=== PATIENT | female | born 1990 | race Caucasian/White ===

== ENCOUNTER → 2024-03-25 11:35 | Outpatient (REF) | payer OTHER, SELFPAY | LOC: WDC 11:35 | PROVIDERS: ATTENDING PHYSICIAN Nurse Practitioner Family; FAMILY PHYSICIAN Physician Assistant Medical | DX: Z12.31 Encounter for screening mammogram for malignant neoplasm of breast (principal); Z80.3 Family history of malignant neoplasm of breast; N64.4 Mastodynia | CPT/HCPCS: 77063; 77067 ==

== ENCOUNTER → 2024-04-11 13:49 | Outpatient (REF) | payer OTHER, SELFPAY | LOC: WDC 13:49 | PROVIDERS: ATTENDING PHYSICIAN Nurse Practitioner Family; FAMILY PHYSICIAN Family Medicine | DX: N64.4 Mastodynia (principal) | CPT/HCPCS: 76642 ==

== ENCOUNTER → 2024-10-09 07:28 | Outpatient (REF) | payer OTHER, SELFPAY | LOC: PNTC 07:28 | PROVIDERS: ATTENDING PHYSICIAN Obstetrics & Gynecology | DX: O09.519 Supervision of elderly primigravida, unspecified trimester (principal); O99.210 Obesity complicating pregnancy, unspecified trimester | CPT/HCPCS: 76805 ==

== ENCOUNTER 2024-12-25 17:07 | Observation (INO) | payer OTHER, SELFPAY ==
[2024-12-25 17:12] VITALS: BMI 35.0
[2024-12-25 17:15] VITALS: BP 119/64
[2024-12-25 17:40] LABS: % Basophils 0.5 % (0-2); % Eosinophils 2.1 % (0-6); % Immature Granulocytes 1.3 % (0-0.5); % Lymphocytes 13.8 % (20.5-51.1); % Monocytes 7.3 % (1.7-9.3); Absolute Basophils 0.1 10^3/uL (0-0.2); Absolute Eosinophils 0.2 10^3/uL (0-0.7); Absolute Immature Granulocytes 0.1 10^3/uL (0-0.05); Absolute Lymphocytes 1.4 10^3/uL (1.2-3.4); Absolute Monocytes 0.7 10^3/uL (0.1-0.6); Absolute Neutrophils 7.5 10^3/uL (1.4-6.5); Hematocrit 29.9 % (37.0-47.0); Hemoglobin 10.6 g/dL (12.0-16.0); Mean Corp Hgb Conc. 35.5 g/dL (33.0-37.0); Mean Corpuscular Hgb 30.5 pg (27.0-31.0); Mean Corpuscular Volume 85.9 fL (81.0-99.0); Mean Platelet Volume 11.6 fL (7.4-10.4); Nucleated Red Blood Cells % 0 %; Platelet Count 155 10^3/uL (130-400); Red Blood Cell Count 3.48 10^6/uL (4.20-5.40); Red Cell Dist. Width 13.3 % (11.5-14.5); White Blood Cell Count 9.9 10^3/uL (4.8-10.8)
[2024-12-25 17:56] LABS: ALT (SGPT) < 10 U/L (0-35); AST (SGOT) 14 U/L (14-36); Albumin 3.3 g/dl (3.5-5.0); Alkaline Phosphatase 73 U/L (38-126); Blood Urea Nitrogen 7 mg/dl (7-17); Calcium 9.2 mg/dl (8.4-10.2); Carbon Dioxide 21 mmol/L (22-30); Chloride 107 mmol/L (98-107); Estimated Creatinine Clearance > 125 ml/min; Glucose 107 mg/dl (70-99); Potassium 3.6 mmol/L (3.5-5.1); Sodium 135 mmol/L (135-145); Total Bilirubin 0.4 mg/dl (0.2-1.3); Total Protein 6.1 g/dl (6.3-8.2); eGFR > 60.00
[2024-12-25 18:07] LABS: Protein/creatinine Ratio 0.7; Urine Protein 13 mg/dl
== END 2024-12-25 18:23 | disposition home or self-care (01) ==
LOC: LDRP 17:07
PROVIDERS: ADMITTING PHYSICIAN Obstetrics & Gynecology; FAMILY PHYSICIAN Family Medicine
DX: O26.892 Other specified pregnancy related conditions, second trimester (principal); R51.9 Headache, unspecified; Z3A.27 27 weeks gestation of pregnancy
CPT/HCPCS: 80053; 82570; 84156; 85025; G0378

== ENCOUNTER 2025-01-12 05:23 | Observation (INO) | payer OTHER, SELFPAY ==
[2025-01-12 06:01] VITALS: BP 116/76; BMI 35.4
== END 2025-01-12 11:05 | disposition short-term general hospital (02) ==
LOC: LDRP 05:23
PROVIDERS: ADMITTING PHYSICIAN Obstetrics & Gynecology
DX: O26.893 Other specified pregnancy related conditions, third trimester (principal); R05.9 Cough, unspecified; Z3A.30 30 weeks gestation of pregnancy

== ENCOUNTER 2025-01-12 16:37 | Inpatient (IN) | payer OTHER, SELFPAY ==
[2025-01-12] VITALS (12 sets, daily range): BP systolic 90–126; BP diastolic 57–90; BMI 36.7
[2025-01-12] MEDS: VENTOLIN NEBULES 2.5 MG INH (06:44)
[2025-01-12] MEDS: DUONEB 3 ML INH ×5 (07:05→23:08)
[2025-01-12] MEDS: DECADRON 10 MG IV (07:05)
--- NOTE | 2025-01-12 11:24 | ED.GENMED ---
History of Present Illness
General
Chief Complaint: Breathing Problem
Source: patient and spouse
Time Seen by Provider: 01/12/25 06:29
History of Present Illness
History of Present Illness:
This is a 34-year-old female who presents with shortness of breath and coughing. The patient states has been ongoing for the last 1 to 2 days. She does admit she has has allergies to nose and congestion. She denies fever or illness. No sick
contacts. Patient states she has been having normal movement. No fevers or hemoptysis. Has had bilateral leg swelling related to her . She is approximately 31 weeks. Patient also admits to a rash that she has been dealing with
Past History
Past History
ED Past Medical History: None
ED Past Surgical History: None
Social History
Tobacco: Non-smoker
Personal:
Living: with family
Employment: Employed
Phy Exam
Physical Exam
Physical Exam:
CONSTITUTIONAL Patient alert and oriented to person, place and time. Well-appearing. Vital signs reviewed.
HEAD atraumatic, normocephalic.
EYES eyelids normal to inspection, Extraocular muscles intact, Conjunctiva normal, Sclera normal.
NECK normal range of motion, Trachea midline, no jugular venous distention.
RESPIRATORY CHEST No respiratory distress noted, Chest expansion equal, moderate to severe wheezing bilaterally.
CARDIOVASCULAR regular and tachycardic, Heart sounds normal.
ABDOMEN gravid uterus noted appropriate for stated gestational age.
BACK normal inspection, no obvious deformities
UPPER EXTREMITY range of motion normal, Motor strength normal, no cyanosis, no edema.
LOWER EXTREMITY range of motion normal, Motor strength normal, no cyanosis, trace bilateral edema.
NEURO Speech normal, No focal motor deficits, Marquita coma scale 15, Memory normal, Cranial Nerves intact to screening exam.
SKIN skin warm, dry, and with papules noted on the legs. She also has confluence raised patches on her abdomen
Sepsis
Sepsis Screening
Sepsis Assessment: Sepsis Ruled Out
Sepsis Screen
Sepsis Screen: Sepsis Ruled Out
Date: 01/12/25
Time: 14:16
Course
Orders/Labs/Results
Orders:
Orders
01/12/25 06:41
Albuterol Nebs [Ventolin Nebules] 2.5 mg .ROUTE .STK-MED ONE
01/12/25 06:43
Albuterol Nebs [Ventolin Nebules] 2.5 mg INH R NOW STA
01/12/25 06:50
Dexamethasone Sod Phosphate [Decadron] 10 mg IV NOW STA
Ipratropium/Albuterol Sulfate [Duoneb] 3 ml INH R NOW STA
Ipratropium/Albuterol Sulfate [Duoneb] 3 ml INH R NOW STA
01/12/25 09:49
Ipratropium/Albuterol Sulfate [Duoneb] 3 ml INH R NOW STA
01/12/25 11:42
0.9% Sodium Chloride 500 ml [Nss] 500 ml IV BOLUS
01/12/25 11:45
Complete Blood Count/With Diff Urgent
Comprehensive Metabolic Panel Urgent
Abnormal Lab Results
01/12/25
11:45
WBC 14.6 H 10^3/uL
(4.8-10.8)
RBC 3.39 L 10^6/uL
(4.20-5.40)
Hgb 10.0 L g/dL
(12.0-16.0)
Hct 29.7 L %
(37.0-47.0)
MPV 12.1 H fL
(7.4-10.4)
Abs Immat Gran (auto) 0.3 H 10^3/uL
(0-0.05)
Absolute Neuts (auto) 13.4 H 10^3/uL
(1.4-6.5)
Absolute Lymphs (auto) 0.6 L 10^3/uL
(1.2-3.4)
Immature Gran % 2.3 H %
(0-0.5)
Neutrophils % 91.9 H %
(42.2-75.2)
Lymphocytes % 3.8 L %
(20.5-51.1)
Monocytes % 0.9 L %
(1.7-9.3)
Potassium 3.3 L mmol/L
(3.5-5.1)
Chloride 114 H mmol/L
(98-107)
Carbon Dioxide 18 L mmol/L
(22-30)
BUN 4 L mg/dl
(7-17)
Creatinine 0.4 L mg/dL
(0.6-1.0)
Glucose 138 H mg/dl
(70-99)
Calcium 8.0 L mg/dl
(8.4-10.2)
Total Protein 5.6 L g/dl
(6.3-8.2)
Albumin 3.0 L g/dl
(3.5-5.0)
01/12/25 11:45
01/12/25 11:45
Vital Signs
Initial and Last Documented VS:
Initial Vital Signs
Temp Pulse Resp BP Pulse Ox
97.8 F 96 22 90/66 98
01/12/25 06:15 01/12/25 06:15 01/12/25 06:15 01/12/25 06:15 01/12/25 06:15
Last Documented Vital Signs
Temp Pulse Resp BP Pulse Ox
97.8 F 99 23 111/57 96
01/12/25 06:15 01/12/25 12:45 01/12/25 12:15 01/12/25 13:00 01/12/25 13:45
MDM/Problems Addressed
Differential Diagnosis Includes:
Pneumonia, PE, bronchitis, reactive airway disease, PUPPP
MDM/Problems Addressed:
Reactive airway disease, Pruritic Urticarial Papules and Plaques of (PUPPP)
*Pulse Oximetry
Patient hypoxic: no
*Squirrel Man Interpretation
Rate: tachycardiac
Interpretation: abnormal
Rhythm: sinus
*Critical Care Note
Total Time (30-74mins, 75-104mins- exclusive of procedures): Not Applicable
Data Reviewed
Source: patient and spouse
Prescriptions/Medications Considered But Not Given:
Consider antibiotics but suspect no focal infiltrates
Further Testing Considered But Not Given:
Consider chest x-ray and chest CT. However patient is hesitant to expose fetus to radiation. At this point with the wheezing I think it is reasonable
Patient Management
Discussion with other providers: Hospitalist and Slitter Helper (OB Dr. Tripp)
Escalation/DeEscalation of care consider admission/obs:
34-year-old female who presents with difficulty breathing and cough. Given several bronchodilator dosages and steroids but continues to wheeze. Attempted to ambulate her but she felt dizzy and short of breath. Do not have significant suspicion
for pulmonary embolism as she is wheezing bilaterally but will need to be monitored for improvement. She did report mild improvement with breathing treatments making the risk of PE or other ominous diagnosis less likely. If symptoms do not improve
as expected, may need advanced imaging
ED Attending Note
-
Portions of this chart may have been created with voice recognition software.� Occasional wrong word or��sound alike� substitutions may have occurred due to the inherent limitations of voice recognition software.
Discharge Plan
Departure
Patient Disposition: Admit
Date of Disposition: 01/12/25
Time of Disposition: 13:13
Admit to: Med/Surg
Presentation/result/management discussed w/ accepting MD/DO: Hospitalist
Discharge Problem:
RAD (reactive airway disease) with wheezing, Pruritic urticarial papules and plaques of (puppp)
Prescriptions:
No Action
cetirizine [Zyrtec] 10 mg Tablet
10 mg PO HS
ferrous sulfate 325 mg (65 mg iron) Tablet
325 mg PO DAILY
PNV cmb#95-ferrous fumarate-FA [] 28 mg iron- 800 mcg Tablet
1 tab PO DAILY
Referrals:
UNKNOWN - PT DOES,NOT KNOW [Family Provider] -
Interventions
Interventions:
*Risk Screen - Suicide Last Done: 01/12/25 06:15
*General Assessment Last Done: 01/12/25 08:30
*Neglect/Abuse Screening Last Done: 01/12/25 06:15
*ED- Fall Risk Assessment Last Done: 01/12/25 09:29
*ED COVID-19 Vaccine History Last Done: 01/12/25 08:30
ED- Cardiac Assessment Last Done: 01/12/25 06:35
ED- Pulmonary Assessment Last Done: 01/12/25 06:35
Discharge Date and Time
Print Language: MALAWIAN
[2025-01-12] MEDS: NSS 500 IV (11:49)
[2025-01-12 12:18] LABS: % Basophils 0.3 % (0-2); % Eosinophils 0.8 % (0-6); % Immature Granulocytes 2.3 % (0-0.5); % Lymphocytes 3.8 % (20.5-51.1); % Monocytes 0.9 % (1.7-9.3); % Neutrophils 91.9 % (42.2-75.2); Absolute Basophils 0.1 10^3/uL (0-0.2); Absolute Eosinophils 0.1 10^3/uL (0-0.7); Absolute Immature Granulocytes 0.3 10^3/uL (0-0.05); Absolute Lymphocytes 0.6 10^3/uL (1.2-3.4); Absolute Monocytes 0.1 10^3/uL (0.1-0.6); Absolute Neutrophils 13.4 10^3/uL (1.4-6.5); Hematocrit 29.7 % (37.0-47.0); Mean Corp Hgb Conc. 33.7 g/dL (33.0-37.0); Mean Corpuscular Hgb 29.5 pg (27.0-31.0); Mean Corpuscular Volume 87.6 fL (81.0-99.0); Mean Platelet Volume 12.1 fL (7.4-10.4); Nucleated Red Blood Cells % 0 %; Platelet Count 147 10^3/uL (130-400); Red Blood Cell Count 3.39 10^6/uL (4.20-5.40); Red Cell Dist. Width 14.4 % (11.5-14.5); White Blood Cell Count 14.6 10^3/uL (4.8-10.8)
[2025-01-12 12:38] LABS: Alkaline Phosphatase 99 U/L (38-126); Blood Urea Nitrogen 4 mg/dl (7-17); Carbon Dioxide 18 mmol/L (22-30); Chloride 114 mmol/L (98-107); Estimated Creatinine Clearance > 125 ml/min; Glucose 138 mg/dl (70-99); Potassium 3.3 mmol/L (3.5-5.1); Sodium 138 mmol/L (135-145); eGFR > 60.00
[2025-01-12 12:39] LABS: ALT (SGPT) 12 U/L (0-35); AST (SGOT) 16 U/L (14-36); Total Bilirubin 0.2 mg/dl (0.2-1.3); Total Protein 5.6 g/dl (6.3-8.2)
--- NOTE | 2025-01-12 15:02 | HPS.HSE ---
Addendum entered and electronically signed by Chidi Cates MD 01/13/25 16:53:
34 female history of seasonal allergies who presented with wheezing shortness of breath and pruritic rash on abdomen and lower extremities. Should be noted she is 31 weeks and OB has recommended medicine to admit and they will follow-up on
L&D.
Provided nebulizer treatments discussed with OB they are okay with starting systemic oral steroids.
Check a 2D echocardiogram and BNP to rule out related cardiomyopathy
No sore throat congestions fever to suspect viral syndrome
Pulmonary consult
Original Note:
Family Physician
-
Family Physician: NOT KNOW UNKNOWN - PT DOES
Chief Complaint
-
Shortness of breath and generalized itching
History of Present Illness
Patient is a 34-year-old female, with past medical history of seasonal allergies and has history of 2 in the past. She was in her usual state of health a week ago when she gradually started to feel itchy all over her body including arms
legs, abdomen, dorsum of hands and feet. She tried to use moisturization, zulema butter and over the counter max strength cortisone creams to help with the itching but it persisted. She denies any itching on palms and soles. She said nothing helped
and she was miserable with it. 2 days ago she started to cough, she was dry without any sputum, overnight it became worse and worse and she could now hear wheezing in her chest and so she decided to come to the ER.
She is currently 31 weeks , follows up with her hr payroll coordinator, felt normal movements
This is her third , the first time she ever had the symptoms
She regularly takes Zyrtec for her seasonal allergies. She denies any new medications, perfume, food allergies, hygiene products, sick contacts, or any recent travel.
She denies any fever or chills.
In her medication list, she takes multivitamin and iron supplements.
Medical History
Past Medical History
Past Medical History: Reports None and Other (On disease that her case)
Past Surgical History: Reports (2)
Social History
Tobacco: Non-smoker
Alcohol: None
Drug: None
Personal:
Living: With Family
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
Family History
Family History: Not pertinent
Allergies / Home Medications
Allergies reflects when Allergies were last updated in [facility].
Home Medications with original date entered in [facility]
Allergy/Medication List:
Allergies
Allergy/AdvReac Type Severity Reaction Status Date / Time
No Known Allergies Allergy Verified 01/12/25 06:18
Home Medications
cetirizine 10 mg tablet (Zyrtec) 10 mg PO HS 01/12/25
ferrous sulfate 325 mg (65 mg iron) tablet 325 mg PO DAILY 01/12/25
vit no.95-ferrous fumarate 28 mg-folic acid 800 mcg tablet () 1 tab PO DAILY 01/12/25
Review of Systems
-
A 12 point ROS was completed and negative except as noted: Yes
Physical Exam
Vital Signs
Vital Signs
Temp Pulse Resp BP Pulse Ox
97.8 F 102 19 111/57 98
01/12/25 06:15 01/12/25 14:30 01/12/25 14:30 01/12/25 13:00 01/12/25 14:30
Physical Exam
General: Well Developed, Well Nourished and Other (Anxious appearing, audible wheeze, young female with gravid uterus )
HEENT: Anicteric and Moist mucous membranes
Respiratory: Other (Bilateral wheezes and rhonchi)
Cardiac: S1/S2, Regular Rhythm and Tachycardia
GI: Soft, Non Tender and Other (Gravid abdomen appropriate with gestational age)
Musculoskeletal: No Clubbing, No Cyanosis and No Edema
Skin: Warm, Dry and Other (Tiny red bumps all over the arms and legs as well as abdomen. Excoriation trejo, rash coalescing into plaques over abdomen, patient feels itchy)
Neuro: Awake, Oriented and Nonfocal/grossly intact
Psych: Calm
Laboratory Results
-
01/12/25 11:45
01/12/25 11:45
Laboratory Results
Total Bilirubin 0.2 mg/dl (0.2-1.3) 01/12/25 11:45
AST 16 U/L (14-36) 01/12/25 11:45
ALT 12 U/L (0-35) 01/12/25 11:45
Alkaline Phosphatase 99 U/L (38-126) 01/12/25 11:45
Impression/Plan
-
IMPRESSION:
Patient is a 34-year-old female, s/p 2 prior C-sections, history of Carcamo's palsy, varicella presented to ER with shortness of breath and cough. Patient had been feeling itchiness all over the body with tiny bumpy red rash all over the ground
anterior abdomen bilateral legs, arms dorsum of hands and dorsum of feet. The cough started 2 days ago and it progressed to wheezing which prompted the patient to come to the ER. She denied any new foods medication, lotions since, medications.
She only takes iurn-dji-pgaermp iron supplementation. Has had history of seasonal allergies for which she takes daily citrate
Prior
Currently 31 weeks of gestation, normal movements and has had an uneventful .
ASSESSMENT/PLAN:
1. Shortness of breath secondary to likely bronchospasm
No past medical history of asthma/COPD or any other lung issues
No history of food allergy
History of seasonal allergies, uses zytrec daily
Presented with audible wheezing, no oxygen requirement, breathing on room air
Non-smoker
No prior imaging available
Pulmonology consult appreciated-recommended outpatient pulmonary evaluation for PFTs and 6-minute walking test once she delivers baby and is back to baseline
Okay to start IV steroids/IV antihistamine with approval from [facility]
2D Doppler echocardiogram
2.Generalized itching most likely secondary to pruritic urticarial papules and plaques of
Generalized itching, involving tiny red bumps over her arms legs trunk abdomen dorsum of hands and face, sparing palms and soles
AST ALT and ALP within normal limits
Patient already tried emollients and topical steroid [id number]
Start oral steroids
[employer] [facility] [employer] [facility] consult appreciated- okay with starting oral steroids
Repeat BMP
DVT prophylaxis-sequential compression devices
CODE STATUS-full code
[2025-01-12] MEDS: XOPENEX 0.63 MG INHALANT SOLUTION INH (16:25)
--- NOTE | 2025-01-12 16:27 | CON.PUL ---
Consultation
Consultation Request
Date/Time Consultation Requested: 01/12/25
Date/Time Consultation Performed: 01/12/25
Performing Provider: Roxane
Reason for Consultation: SOB/rash
Medical History
-
History of Present Illness:
Patient is a 34-year-old male with who is s/p 2 prior C-sections, Carcamo's palsy, varicella presenting to ER following progressive shortness of breath and coughing. This has been going on for the past 2 days, she has noticed also new pruritic
rash worsening on her abdomen. Her rash is distributed on her posterior trunk, anterior abdomen, bilateral lower extremities. She denies any new foods, medications, lotion or scents that she can think of. She was taking wbxi-vwk-mfydqmg iron
supplementation for iron deficiency anemia. She does have seasonal allergy history and eczema in the past prior to third . She denies any prior known history of lung disease including asthma. She had been and delivered in her
first 2 pregnancies without issues.
She is approximately 31 weeks gestation.
Past Medical History
Past Medical History: Other (see list below)
Social History
Tobacco: Non-smoker
Alcohol: None
Drug: None
Family History
Family History: Reviewed & Not Pertinent
Allergies / Home Medications
Allergies
Allergy/AdvReac Type Severity Reaction Status Date / Time
No Known Allergies Allergy Verified 01/12/25 06:18
Home Medications
�Medication �Instructions �Recorded �Confirmed �Last Taken �Type
cetirizine 10 mg tablet (Zyrtec) 10 mg PO HS 01/12/25 01/12/25 01/11/25 22:00 History
ferrous sulfate 325 mg (65 mg 325 mg PO DAILY 01/12/25 01/12/25 01/11/25 History
iron) tablet
vit no.95-ferrous 1 tab PO DAILY 01/12/25 01/12/25 01/11/25 History
fumarate 28 mg-folic acid 800 mcg
tablet ()
Review of Systems
-
History Source: Patient
All other systems: Negative unless noted
Vitals / Labs / Diagnostic Testing
Vital Signs
Temp Pulse Resp BP Pulse Ox
97.8 F 115 22 111/57 97
01/12/25 06:15 01/12/25 15:30 01/12/25 15:30 01/12/25 13:00 01/12/25 15:30
Lab Data
01/12/25 11:45
Diagnostic Testing:
Physical Exam
-
HEENT: Normocephalic, Anicteric and Moist Mucous Membranes
Cardiovascular: S1/S2 and Regular Rhythm
Respiratory: Clear and Non-Labored Respirations
GI: Soft, Non Tender and Other (abdomen with anterior rash down midline)
Neurology: Awake, Alert, Oriented and No Motor Deficits
Skin: Warm, Dry and Other (rash on posterior trunk/anterior abd/BL LEs)
General: Comfortable and Other (anxious, but appears well)
Assessment
-
Patient is a 34-year-old male with who is s/p 2 prior C-sections, Carcamo's palsy, varicella presenting to [facility] ER following progressive shortness of breath and coughing. This has been going on for the past 2 days, she has noticed also new pruritic
rash worsening on her abdomen. Her rash is distributed on her posterior trunk, anterior abdomen, bilateral lower extremities. She denies any new foods, medications, lotion or scents that she can think of. She was taking aehf-afn-lpxjbvo iron
supplementation for iron deficiency anemia. She does have seasonal allergy history and eczema in the past prior to third . She denies any prior known history of lung disease including asthma. She had been and delivered in her
first 2 pregnancies without issues.
She is approximately 31 weeks gestation. We are consulted for evaluation 01/12/25.
Acute shortness of breath/coughing
Acute diffuse pruritic rash, over anterior abdomen/posterior trunk/bilateral lower extremity
Iron deficiency anemia, recently started on jqcw-igp-ilgouow iron supplements
Current gestational status,
Conditions present prior to admission
Varicella
Carcamo's palsy
Seasonal allergies
Eczema
Plan
No oxygen was needed on admission, currently saturating >90% on RA
She was given a nebulizer treatment which she feels does help with wheezing
She is currently clear on examination
Prior history of lung disease is not noted, she was never diagnosed with asthma
She denies family history of asthma, father had COPD but he was a former smoker
She is a lifelong non-smoker
No prior chest imaging for review
She did have prior history of seasonal allergies and eczema prior to gestation
She was given a dose of IV steroids, CBC was obtained following dosage of steroid therefore no eosinophilia will be evident
Can obtain IgE level
This does appear more atopic in appearance
Would continue IV steroids and IV histamine with approval from [facility]
She denies any new changes in her medication regimen, food intake, lotions or creams
She did start supplemental iron bhlj-fly-mcehkxj recently for underlying ALONA
She has no allergies to food or medicine that she is aware of
Will need outpatient pulmonary evaluation in our office for PFTs and 6MWT
However, she is very far along her at 31 weeks gestation and may have impact on her lung function at this trimester
We will follow
Diagnostic Data
No prior chest imaging.
Reports and relevant images were personally reviewed.
Total time spent on this consultation __58__ minutes which includes review of history, physical exam, medications, laboratory data, personal review of imaging, extensive review of outpatient records, discussion with care team and respiratory therapy.
[2025-01-12 16:48] LABS: Blood Urea Nitrogen 3 mg/dl (7-17); Calcium 7.7 mg/dl (8.4-10.2); Carbon Dioxide 16 mmol/L (22-30); Chloride 116 mmol/L (98-107); Estimated Creatinine Clearance > 125 ml/min; Glucose 168 mg/dl (70-99); Potassium 3.1 mmol/L (3.5-5.1); Sodium 139 mmol/L (135-145); eGFR > 60.00
[2025-01-12 16:56] LABS: NT-proBNP 22.4 pg/ml
[2025-01-12] MEDS: KCL 40 MEQ PO (18:10)
--- NOTE | 2025-01-12 19:17 | CON.MD ---
Consultation - Medical
-
Full consult dictated.
Assessment- IUP at 30 3/7 weeks with bronchospasm, PUPPS-
Recommendations-Agree with steroids and antihistamines, will help both issues. Recommend monitoring 30 minutes q shift.
[2025-01-12] MEDS: DECADRON 4 MG PO (20:07)
[2025-01-12] MEDS: BENADRYL 25 MG PO (22:24)
[2025-01-13] MEDS: ROBITUSSIN 200 MG PO (04:13)
[2025-01-13 04:52] LABS: % Basophils 0.3 % (0-2); % Eosinophils 4.4 % (0-6); % Immature Granulocytes 1.9 % (0-0.5); % Lymphocytes 6.6 % (20.5-51.1); % Monocytes 3.4 % (1.7-9.3); % Neutrophils 83.4 % (42.2-75.2); Absolute Eosinophils 0.6 10^3/uL (0-0.7); Absolute Immature Granulocytes 0.3 10^3/uL (0-0.05); Absolute Lymphocytes 0.9 10^3/uL (1.2-3.4); Absolute Monocytes 0.5 10^3/uL (0.1-0.6); Absolute Neutrophils 11.5 10^3/uL (1.4-6.5); Hematocrit 30.2 % (37.0-47.0); Hemoglobin 9.9 g/dL (12.0-16.0); Mean Corp Hgb Conc. 32.8 g/dL (33.0-37.0); Mean Corpuscular Volume 88.6 fL (81.0-99.0); Mean Platelet Volume 12.1 fL (7.4-10.4); Nucleated Red Blood Cells % 0 %; Platelet Count 131 10^3/uL (130-400); Red Blood Cell Count 3.41 10^6/uL (4.20-5.40); Red Cell Dist. Width 14.4 % (11.5-14.5); White Blood Cell Count 13.7 10^3/uL (4.8-10.8)
[2025-01-13 05:16] LABS: Blood Urea Nitrogen 4 mg/dl (7-17); Calcium 9.5 mg/dl (8.4-10.2); Carbon Dioxide 20 mmol/L (22-30); Chloride 113 mmol/L (98-107); Estimated Creatinine Clearance > 125 ml/min; Glucose 129 mg/dl (70-99); Potassium 4.2 mmol/L (3.5-5.1); Sodium 139 mmol/L (135-145); eGFR > 60.00
[2025-01-13] MEDS: DECADRON 4 MG PO (07:21)
[2025-01-13] MEDS: PRENATAL PLUS 1 TABLET PO (07:21)
[2025-01-13] MEDS: FEOSOL 325 MG PO (07:21)
--- NOTE | 2025-01-13 09:25 | W.PN.PUL3 ---
Today's Communication / Plan
-
Change Duonebs to albuterol, will add budesonide
Continue steroids/antihistamines
Cold compresses and topical steroid for itch relief
We discussed eliminating all scented products and using hypoallergenic only until baby is born
CXR without acute findings but waiting official read
If rash improving, can discharge home on steroid taper/nebs
Assessment
-
Patient is a 34-year-old male with who is s/p 2 prior C-sections, Carcamo's palsy, varicella presenting to ER following progressive shortness of breath and coughing. This has been going on for the past 2 days, she has noticed also new pruritic
rash worsening on her abdomen. Her rash is distributed on her posterior trunk, anterior abdomen, bilateral lower extremities. She denies any new foods, medications, lotion or scents that she can think of. She was taking zrvr-raz-augvlym iron
supplementation for iron deficiency anemia. She does have seasonal allergy history and eczema in the past prior to third . She denies any prior known history of lung disease including asthma. She had been and delivered in her
first 2 pregnancies without issues.
She is approximately 31 weeks gestation. We are consulted for evaluation 01/12/25.
Acute shortness of breath/coughing
Acute diffuse pruritic rash, over anterior abdomen/posterior trunk/bilateral lower extremity suspect eczema exacerbation
New onset asthma
Iron deficiency anemia, recently started on yhnu-rax-imgnvby iron supplements
Current gestational status,
Conditions present prior to admission
Varicella
Carcamo's palsy
Seasonal allergies
Eczema
Plan
No oxygen was needed on admission, currently saturating >90% on RA
She was given a nebulizer treatment which she feels does help with wheezing
Albuterol can be continued --will add budesonide (which can be resumed at home, category B)
Prior history of lung disease is not noted, she was never diagnosed with asthma
She denies family history of asthma, father had COPD but he was a former smoker
She is a lifelong non-smoker
No prior chest imaging for review
CXR per team--no acute findings on my review/await read
She did have prior history of seasonal allergies and eczema prior to gestation
She was given a dose of IV steroids, CBC was obtained following dosage of steroid therefore no eosinophilia will be evident
Rash does seem to be improving, continue steroids
Can obtain IgE level--pending
This does appear more atopic in appearance
Continue antihistamine use for itching, cold compresses, topical steroid creams
She denies any new changes in her medication regimen, food intake, lotions or creams
She did start supplemental iron rqtw-hvg-hmsdehd recently for underlying ALONA
She has no allergies to food or medicine that she is aware of
Will need outpatient pulmonary evaluation in our office for PFTs and 6MWT
However, she is very far along her at 31 weeks gestation and may have impact on her lung function at this trimester
Reviewed with care team
Diagnostic Data
CXR pending
Reports and relevant images were personally reviewed.
Total time spent on this consultation __50__ minutes which includes review of history, physical exam, medications, laboratory data, personal review of imaging, extensive review of outpatient records, discussion with care team and respiratory therapy.
Subjective Data
-
Date of Service:
Date of Service: January 13, 2025
Chief Complaint: Pulmonary Follow Up
Subjective:
Better today but still wheezing
Rash seems less red and raised
thinks maybe they used a new soap at home
Objective Data
Data Reviewed
Vital Signs / I&O / Oxygen:
Vital Signs
Temp Pulse Resp BP Pulse Ox
97.8 F 88 20 126/65 98
01/12/25 06:15 01/12/25 23:15 01/12/25 23:15 01/12/25 17:00 01/12/25 17:00
SaO2 98
Physical Exam
General: Comfortable and Other (NAD)
HEENT: Normocephalic, Anicteric and Moist Mucous Membranes
Cardiovascular: S1-S2 and Regular Rhythm
Respiratory: Wheeze (bilateral) and Non-Labored Respirations
GI: Soft, Non Tender and Other (3rd trimester)
Neurology: Awake, Alert, Oriented and No Motor Deficits
Skin: Warm, Dry, Good Color and Rash (anterior abd, BL LEs)
Labs/Micro/Reports
Lab Data
01/13/25 04:36
01/13/25 04:36
--- NOTE | 2025-01-13 10:16 | W.PN.OBG.DWH ---
Today's Communication / Plan
-
await pulm input
Assessment/Plan
-
continue with steroids, antihistamine and breathing treatments
sx care to rash
Subjective Data
-
feeling better but continues to have wheeze insp and exp
scratching
Objective Data
-
Laboratory Results
01/13/25 04:36
01/13/25 04:36
Vital Signs
Temp Pulse Resp BP Pulse Ox
97.8 F 88 20 126/65 98
01/12/25 06:15 01/12/25 23:15 01/12/25 23:15 01/12/25 17:00 01/12/25 17:00
lungs insp and exp wheezes
papules anterior abdominal wall and legs
fht reassuring, no decels, accels noted
toco quiet
--- NOTE | 2025-01-13 10:17 | PTCARENOTE ---
Pt reports coughing and SOB Pt asking for a breathing treatment Respiratoy tech notified to come to the unit and given pt a treatment
[2025-01-13] MEDS: DUONEB 3 ML INH (10:30)
[2025-01-13 12:13] VITALS: BP 117/63
--- NOTE | 2025-01-13 12:17 | PTCARENOTE ---
covid and flu test sent, cxr ordered will go down after seeing clinical research tech
[2025-01-13 12:36] LABS: COVID-19 Antigen Negative (Negative)
--- NOTE | 2025-01-13 13:40 | W.PN.HOSP.TC ---
Addendum entered and electronically signed by Chidi Cates MD 01/13/25 16:58:
34 female history of seasonal allergies who presented with wheezing shortness of breath and pruritic rash on abdomen and lower extremities. Should be noted she is 31 weeks and OB has recommended medicine to admit and they will follow-up on
L&D.
OB nursing and OB asking for chest x-ray and COVID flu therefore will obtain for completeness.
Provided nebulizer treatments discussed with OB they are okay with starting systemic oral steroids.
As expected 2D echocardiogram BNP benign. 2D echocardiogram also did not demonstrate increased right-sided pressures to suspect concern for PE as unable to get CT PE in the setting of . Additionally, reviewing SpO2 trends have been
nominal without evidence of hypoxia to suspect PE. And wheezing has not been associated with PE.
No sore throat congestions fever to suspect viral syndrome
Pulmonary evaluated DuoNeb changed to albuterol and added budesonide. Continue steroids antihistamines per pulmonary. Cool compress and topical steroids for pruritic relief.
CXR without acute findings per official read.
COVID flu negative.
Original Note:
Today's Communication/Plan
-
Continue to monitor
Plan discharge
Assessment / Plan
Assessment / Plan
IMPRESSION:
Patient is a 34-year-old female, s/p 2 prior C-sections, history of Carcamo's palsy, varicella presented to ER with shortness of breath and cough. Patient had been feeling itchiness all over the body with tiny bumpy red rash all over the ground
anterior abdomen bilateral legs, arms dorsum of hands and dorsum of feet. The cough started 2 days ago and it progressed to wheezing which prompted the patient to come to the ER. She denied any new foods medication, lotions since, medications.
She only takes lrox-nbc-knzvkid iron supplementation. Has had history of seasonal allergies for which she takes daily citrate
Prior
Currently 31 weeks of gestation, normal movements and has had an uneventful .
Reports significant improvement in her breathing, wheezing and itching
ASSESSMENT/PLAN:
1. Acute onset shortness of breath/coughing
No past medical history of asthma/COPD or any other lung issues
Breathing on room air, COVID-negative
Chest x-ray with no acute pathological process
Life long non-smoker
Pulmonology consult appreciated-
Albuterol nebulizations 4 times daily and budesonide twice a day
Echocardiography-normal ejection fraction
Continue DEXA 4 mg 12 hourly
Once stable, discharge on steroid taper
Once delivers the baby and body physiology returns to baseline, pulmonary function test and 6-minute walk test on outpatient basis
2.Generalized itching most likely secondary to pruritic urticarial papules and plaques of
Generalized itching, involving tiny red bumps over her arms legs trunk abdomen dorsum of hands and face, sparing palms and soles
AST ALT and ALP within normal limits
Patient already tried emollients and topical steroid [id number]
Topical steroids and cold packs to help with itching
Head Of Operation And Logistics consult appreciated-continue symptomatic care
Repeat BMP
Conditions present prior to admission
Seasonal allergies
Eczema
DVT prophylaxis-sequential compression devices
CODE STATUS-full code
Anticipated Discharge: Within 24 hours
Subjective/Interval History
-
Date of Service: January 13, 2025
Rash improving, reports improvement in her breathing, had some sputum production
Denies any fever or chills
Denies any sore throat or flu
Objective Data
-
Labs:
Laboratory Results
01/13/25
04:36
WBC 13.7 H
Hgb 9.9 L
Hct 30.2 L
Plt Count 131
Sodium 139
Potassium 4.2 D
Chloride 113 H
Carbon Dioxide 20 L
BUN 4 L
Creatinine 0.5 L
Glucose 129 H
Calcium 9.5 D
Vital Signs:
Vital Signs
Temp Pulse Resp BP Pulse Ox
98.0 F 94 18 117/63 98
01/13/25 12:13 01/13/25 12:13 01/13/25 12:13 01/13/25 12:13 01/13/25 12:13
Review of Systems
-
All other systems: Reviewed and negative
Physical Exam
-
General: No Apparent Distress, Comfortable and Conversant
HEENT: Moist Mucous Membranes and Anicteric
Respiratory: Wheezes (Still has some scattered wheezes and rhonchi)
Cardiac: Regular Rhythm, S1/S2 and Tachycardic
GI: Soft, Nontender, Nondistended and Normal Bowel Sounds
Musculoskeletal: No Clubbing, No Cyanosis and No Edema
Skin: Warm, Dry and Other (Maculopapular rash involving arms legs, trunk, anterior abdomen sparing palms and soles)
Neuro: Awake, Oriented and Nonfocal/Grossly Intact
Psych: Calm
[2025-01-13 15:04] VITALS: BP 123/61
--- NOTE | 2025-01-13 16:21 | W.DCSUMMARY ---
Documented by User: Lizandro Dickson MD, Resident 01/13/25 16:30
Discharge Summary
Discharge Data
Date of Admission: 01/12/25
Date of Discharge: 01/13/25
-
Pending Results: No
Hospital Course
Discharging Physician :
Chidi Cates
Disposition :
home
Primary care physician :
unknown
Principal Discharge diagnosis :
Acute onset shortness of breath/coughing,Generalized itching most likely secondary to pruritic urticarial papules and plaques of
Chronic Discharge diagnosis :
Seasonal allergies, eczema, history of varicella
Hospital Course :
1. Acute onset shortness of breath/coughing
No past medical history of asthma/COPD or any other lung issues
No requirement of oxygen, maintaining saturation on room air, COVID-negative
Chest x-ray with no acute pathological process
Life long non-smoker
Pulmonology consult appreciated-agreed with intermediate dose of steroids, received 4 mg of Dexa 12 hourly in hospital and was discharged on steroid taper
Received albuterol nebulizations 4 times daily and budesonide twice a day
Echocardiography-normal ejection fraction
Once delivers the baby and body physiology returns to baseline, pulmonary function test and 6-minute walk test on outpatient basis with pulmonology
2.Generalized itching most likely secondary to pruritic urticarial papules and plaques of
Generalized itching, involving tiny red bumps over her arms legs trunk abdomen dorsum of hands and face, sparing palms and soles
AST ALT and ALP within normal limits
Patient already tried emollients and topical steroid [id number]-[id number]-[id number]
Topical steroids and cold packs advised to help with itching, steroid helped and relief of itching and getting the rash better
Patient felt comfortable on discharge and was feeling better, on examination her chest was better with less her wheezing, discharged on steroid taper pack and advised to follow-up with primary care physician
Important imaging findings :
Chest x-ray 01/13/2025
FINDINGS:
There is no parenchymal opacification. Pulmonary vascularity most likely top normal. The cardiomediastinal silhouettes are within the limits of normal. There is no pneumothorax, pleural effusion or mediastinal shift.
IMPRESSION:
No findings to suggest pneumonia.
Echocardiography 01/13/2025
FINDINGS
Left Ventricle
Normal left ventricular size, wall thickness and systolic function. No regional
wall motion abnormalities are seen. LV ejection fraction is 66% by volumetric
assessment. Normal diastolic function.
Right Ventricle
Right ventricle is not well-visualized but probably normal in size and systolic
function.
Normal biventricular size and systolic function without regional wall motion
abnormality. LVEF 66%.
No significant valvular disease.
Right heart pressures cannot be estimated.
Discharge Plan
-
Patient Disposition: Home (Routine Discharge)
Discharge Diagnosis/Procedures: Acute onset shortness of breath/coughing,Generalized itching most likely secondary to pruritic urticarial papules and plaques of
Condition: Fair
Diet: Regular
Activity: As tolerated
Driving Restrictions: As prior to admission
Activity Restrictions/Additional Instructions:
Recommend outpatient follow up once back to baseline following c-sections to do Pfts with the pulmonogist
Referrals:
Yvonne Betts, DO [Active] - As needed
UNKNOWN - PT DOES,NOT KNOW [Family Provider] -
Prescriptions:
New
albuterol sulfate 2.5 mg /3 mL (0.083 %) Solution For Nebulization
2.5 mg inhalation R QID 5 Days Qty: 60 0RF
guaifenesin 100 mg/5 mL Liquid
200 mg PO Q4HPRN PRN (Reason: cough) 5 Days Qty: 200 0RF
prednisone 10 mg Tablet
See Rx Instructions .ROUTE .COMPLEX Qty: 30 0RF
Rx Instructions:
Take By Mouth:
40 mg daily x3 days, 30 mg daily x3 days,
20 mg daily x3 days, 10 mg daily x3 days.
Continued
cetirizine [Zyrtec] 10 mg Tablet
10 mg PO HS
ferrous sulfate 325 mg (65 mg iron) Tablet
325 mg PO DAILY
PNV cmb#95-ferrous fumarate-FA [] 28 mg iron- 800 mcg Tablet
1 tab PO DAILY
Discharge Orders:
Discharge Patient (As Directed); Ordered 01/13/25
Ordered By: Lizandro Dickson
Discharge Date and Time
Print Language: PORTUGUESE

Documented by User: Chidi Cates MD 01/13/25 16:58
Discharge Summary
Discharge Data
Date of Admission: 01/12/25
Date of Discharge: 01/13/25
Discharge Plan
-
Patient Disposition: Home (Routine Discharge)
Discharge Diagnosis/Procedures: Acute onset shortness of breath/coughing,Generalized itching most likely secondary to pruritic urticarial papules and plaques of
Condition: Fair
Diet: Regular
Activity: As tolerated
Driving Restrictions: As prior to admission
Activity Restrictions/Additional Instructions:
Recommend outpatient follow up once back to baseline following c-sections to do Pfts with the pulmonogist
Referrals:
Yvonne Betts, DO [Active] - As needed
UNKNOWN - PT DOES,NOT KNOW [Family Provider] -
Prescriptions:
New
albuterol sulfate 2.5 mg /3 mL (0.083 %) Solution For Nebulization
2.5 mg inhalation R QID 5 Days Qty: 60 0RF
guaifenesin 100 mg/5 mL Liquid
200 mg PO Q4HPRN PRN (Reason: cough) 5 Days Qty: 200 0RF
prednisone 10 mg Tablet
See Rx Instructions .ROUTE .COMPLEX Qty: 30 0RF
Rx Instructions:
Take By Mouth:
40 mg daily x3 days, 30 mg daily x3 days,
20 mg daily x3 days, 10 mg daily x3 days.
Continued
cetirizine [Zyrtec] 10 mg Tablet
10 mg PO HS
ferrous sulfate 325 mg (65 mg iron) Tablet
325 mg PO DAILY
[facility] cmb#95-ferrous fumarate-FA [] 28 mg iron- 800 mcg Tablet
1 tab PO DAILY
Discharge Orders:
Discharge Patient (As Directed); Ordered 01/13/25
Ordered By: Lizandro Dickson
Discharge Date and Time
Print Language: PORTUGUESE
[2025-01-15 08:53] LABS: IgE 10 kU/L (<=214)
== END 2025-01-13 16:00 | disposition home or self-care (01) | DRG 833 ==
LOC: LDRP 16:37
PROVIDERS: Internal Medicine; Student in an Organized Health Care Education/Training Program; ADMITTING PHYSICIAN Hospitalist; EMERGENCY PHYSICIAN Emergency Medicine; OTHER PHYSICIAN Obstetrics & Gynecology
DX: O99.513 Diseases of the respiratory system complicating pregnancy, third trimester (principal); O26.86 Pruritic urticarial papules and plaques of pregnancy (PUPPP); N85.8 Other specified noninflammatory disorders of uterus; O34.211 Maternal care for low transverse scar from previous cesarean delivery; L30.9 Dermatitis, unspecified; O99.013 Anemia complicating pregnancy, third trimester; D50.9 Iron deficiency anemia, unspecified; G51.0 Bell's palsy; J45.909 Unspecified asthma, uncomplicated; O99.353 Diseases of the nervous system complicating pregnancy, third trimester; O99.713 Diseases of the skin and subcutaneous tissue complicating pregnancy, third trimester; O09.523 Supervision of elderly multigravida, third trimester; Z3A.30 30 weeks gestation of pregnancy; Z11.52 Encounter for screening for COVID-19
CPT/HCPCS: 71046; 80048; 80053; 82785; 83880; 85025; 87502; 87811; 93306; 94640; 96374; 99285

== ENCOUNTER 2025-02-05 20:09 | Inpatient (IN) | payer OTHER, SELFPAY ==
[2025-02-05] VITALS (8 sets, daily range): BP systolic 107–151; BP diastolic 63–83; BMI 36.0
--- NOTE | 2025-02-05 18:18 | ED.GENMED ---
History of Present Illness
General
Chief Complaint: Breathing Problem
Time Seen by Provider: 02/05/25 17:37
History of Present Illness
History of Present Illness:
Note:
CHIEF COMPLAINT(S)
- Rash with vesicles spreading to various parts of the body
- Burning and itching sensation in the feet
- Asthma exacerbation
HISTORY OF PRESENT ILLNESS
The patient is a 34-year-old female with a history of asthma, who presented with a rash initially noticed as a scratch that has progressively spread. The rash now involves vesicular lesions on the legs, hands, chest, and palms. She reports the rash
is itchy and associated with a burning sensation, particularly in the feet. The condition began last month with minimal intervention through an oral steroid previously received for a different indication. Currently, the patient is using a nebulizer
with albuterol for asthma management, but symptoms, especially at night, persist. There are concerns regarding the nature of the rash, resembling vesicles rather than hive-like urticarial lesions, prompting consideration for conditions like
disseminated herpes-type infection. The patient has a history of chickenpox but is unsure about having received the varicella vaccine.
ADDITIONAL HISTORY OBTAINED FROM SOURCES OTHER THAN THE PATIENT
- Per conversation with infectious disease specialists, the appearance of the rash may necessitate further investigation to rule out more severe conditions such as disseminated varicella or herpes.
REVIEW OF SYSTEMS
- Dermatological: Vesicular rash, pruritic and present on multiple body areas including legs, hands, and chest.
- Respiratory: Asthma symptoms, wheezing, and difficulty breathing, more pronounced at night.
PHYSICAL EXAM
- GEN: Uncomfortable, tachypneic, no distress
- Cardio: RRR, no M/R/G
- Pulm: Diffuse expiratory wheezes heard throughout
- Dermatological: Vesicular and papular lesions on various parts of the body, particularly palms and soles, with a reported itch and burning sensation.
- Respiratory: Wheezing present upon auscultation.
- Nursing notes reviewed and vital signs reviewed.
PROBLEM LIST
- Acute: Diffuse vesicular rash, asthma exacerbation
- Potential considerations: Disseminated herpes-type or varicella infection.
PLAN
- Order nebulizer treatment immediately to address wheezing.
- Capture images of the rash to consult with the infectious disease team regarding possible diagnoses and next steps.
- Consider admission for antiviral therapy if herpes zoster or varicella infection is suspected.
- Follow-up with infectious disease specialists for further guidance on rash management.
DIFFERENTIAL DIAGNOSIS
The Differential Diagnosis includes, in no particular order and is not limited to:
1. Disseminated herpes zoster infection
2. Disseminated varicella infection
3. Fssk-kctu-ajvrf disease
4. Contact dermatitis
5. Urticarial rash of
6. Pemphigus gestationis
7. Erythema multiforme
8. Drug reaction with eosinophilia and systemic symptoms (DRESS)
9: Eczema herpeticum
Disposition:
DIAGNOSIS
- Pruritic and urticarial papules and plaques of (O26.8)
- Suspected disseminated HSV or Zoster infection
- Asthma exacerbation
SUMMARY OF ENCOUNTER
The patient is a 33-week female who presented with a progressively worsening and painful rash, initially diagnosed as pruritic and urticarial papules and plaques of . The rash, predominantly on the lower extremities and trunk, has
developed into painful vesicles on her feet, which is atypical for her initial diagnosis. Additionally, the patient is experiencing increased shortness of breath and asthma symptoms.
DISPOSITION
Admit
CONSIDERATION FOR ADMISSION
The patient will be admitted for IV antiviral therapy to empirically treat a suspected disseminated HSV or Zoster infection, as well as for IV steroids and bronchodilator treatments for asthma exacerbation.
ASSESSMENT
The worsening vesicular rash and the presence of painful lesions on the feet, along with respiratory symptoms, suggest a need to rule out disseminated HSV or Zoster infection in this patient.
MANAGEMENT OF THE PATIENTS CARE WAS DISCUSSED WITH
Case discussed with infectious disease and STUDIO OPERATION ENGINEER.
PLAN
- Admission for IV antiviral therapy to empirically treat suspected HSV or Zoster infection.
- Administer IV steroids and bronchodilator treatments for asthma exacerbation.
- Perform swabs from the lesions on the feet to confirm diagnosis of HSV or Zoster.
MEDICATION RECONCILIATION
- Administer IV antivirals to empirically treat the suspected viral infection.
- Administer IV steroids for asthma exacerbation.
MEDICAL DECISION MAKING
The complexity and urgency of the patients conditions, including the atypical presentation of the rash and respiratory symptoms, necessitated consultation with specialists and consideration of multiple potential diagnoses. The decision to admit was
influenced by the need for immediate treatment of possible disseminated HSV or Zoster infection and effective management of asthma exacerbation during .
Past History
Past History
ED Past Medical History: None
ED Past Surgical History: None
Social History
Tobacco: Non-smoker
Personal:
Living: with family
Employment: Employed
Phy Exam
Physical Exam
Physical Exam:
.
Course
Orders/Labs/Results
Orders:
Orders
02/05/25 16:29
ECG [Electrocardiogram (*1)] Urgent
Reason for Study: Shortness of Breath
EKG- Treatment ONCE
02/05/25 17:55
Ipratropium/Albuterol Sulfate [Duoneb] 3 ml INH R NOW ONE
02/05/25 18:15
Complete Blood Count/With Diff Urgent
Comprehensive Metabolic Panel Urgent
Varicella-Zoster Virus By PCR [S] Urgent
Source: Vesicle Fluid
Viral Culture, Non Respiratory Urgent
SANDRA Source: Vesicular Fluid
Specimen Description:
Date Specimen was Collected: 02/05/25
Time Specimen was Collected: 18:14
02/05/25 18:40
MethylPREDNISolone PF [Solu-Medrol Pf] 60 mg IV NOW STA
02/05/25 18:54
Acyclovir [Zovirax Injection] 860 mg 0.9% Sodium Chloride 250 ml [Nss] 250 ml IV NOW
02/05/25 19:48
Admit/Transfer Patient As Directed
Co-Sign Provider:
Level of Care: Inpatient admission
Assign to:: Medical/Surgical
Physician / Group: kasie
Diagnosis: herpes zoster
Reason for Hospitalization: herpes zoster
Expected length of stay greater than two midnights?: Yes
ELOS- Estimated Length of Stay in days: 2
I certify the patient meets the requirements for IP care: Yes
PRN Pain Medication Management As Directed
May give lesser potent ordered pain med per pt: Yes
preference::
Protocol:: Medication orders for pain may be administered in a
manner that supports deferring to patient preference
when the pt is:
- Requesting an ordered lesser potent pain medication.
Least to most potent pain medications are defined
as: acetaminophen < NSAID < tramadol < opioids
(morphine, oxycodone, hydromorphone).
- Requesting a lesser dose of the same medication IF
ORDERED.
- Requesting a less intrusive route of administration
if both routes are prescribed by the provider (PO <
IV).
02/05/25 19:49
Code Status As Directed
Resuscitation Status: Full Code
Abnormal Lab Results
02/05/25
18:15
RBC 3.58 L 10^6/uL
(4.20-5.40)
Hgb 10.4 L g/dL
(12.0-16.0)
Hct 30.7 L %
(37.0-47.0)
RDW 16.0 H %
(11.5-14.5)
MPV 11.7 H fL
(7.4-10.4)
Abs Immat Gran (auto) 0.1 H 10^3/uL
(0-0.05)
Absolute Neuts (auto) 7.3 H 10^3/uL
(1.4-6.5)
Absolute Monos (auto) 0.7 H 10^3/uL
(0.1-0.6)
Immature Gran % 1.0 H %
(0-0.5)
Lymphocytes % 14.5 L %
(20.5-51.1)
Eosinophils % 6.1 H %
(0-6)
Chloride 111 H mmol/L
(98-107)
Carbon Dioxide 20 L mmol/L
(22-30)
BUN 3 L mg/dl
(7-17)
Creatinine 0.4 L mg/dL
(0.6-1.0)
Alkaline Phosphatase 142 H U/L
(38-126)
Albumin 3.3 L g/dl
(3.5-5.0)
02/05/25 18:15
02/05/25 18:15
Vital Signs
Initial and Last Documented VS:
Initial Vital Signs
Temp Pulse Resp BP Pulse Ox
99.4 F 102 20 151/79 98
02/05/25 16:24 02/05/25 16:24 02/05/25 16:24 02/05/25 16:24 02/05/25 16:24
Last Documented Vital Signs
Temp Pulse Resp BP Pulse Ox
99.4 F 99 24 119/67 98
02/05/25 16:24 02/05/25 22:15 02/05/25 22:15 02/05/25 22:00 02/05/25 16:24
*Critical Care Note
Total Time (30-74mins, 75-104mins- exclusive of procedures): Not Applicable
ED Attending Note
-
Portions of this chart may have been created with voice recognition software.� Occasional wrong word or��sound alike� substitutions may have occurred due to the inherent limitations of voice recognition software.
Discharge Plan
Departure
Patient Disposition: Admit
Date of Disposition: 02/05/25
Time of Disposition: 19:17
Admit to: Med/Surg
Presentation/result/management discussed w/ accepting MD/DO: Hospitalist
Discharge Problem:
Vesicular lesion, Asthma exacerbation
Interventions
Interventions:
*Risk Screen - Suicide Last Done: 02/05/25 16:24
*General Assessment Last Done: 02/05/25 16:24
*Neglect/Abuse Screening Last Done: 02/05/25 16:51
*ED- Fall Risk Assessment Last Done: 02/05/25 16:51
*ED COVID-19 Vaccine History Last Done: 02/05/25 16:51
ED- Cardiac Assessment Last Done: 02/05/25 16:51
ED- Pulmonary Assessment Last Done: 02/05/25 16:51
[2025-02-05] MEDS: DUONEB 3 ML INH (18:24)
[2025-02-05 18:37] LABS: % Basophils 0.3 % (0-2); % Eosinophils 6.1 % (0-6); % Lymphocytes 14.5 % (20.5-51.1); % Monocytes 7.2 % (1.7-9.3); % Neutrophils 70.9 % (42.2-75.2); Absolute Eosinophils 0.6 10^3/uL (0-0.7); Absolute Immature Granulocytes 0.1 10^3/uL (0-0.05); Absolute Lymphocytes 1.5 10^3/uL (1.2-3.4); Absolute Monocytes 0.7 10^3/uL (0.1-0.6); Absolute Neutrophils 7.3 10^3/uL (1.4-6.5); Hematocrit 30.7 % (37.0-47.0); Hemoglobin 10.4 g/dL (12.0-16.0); Mean Corp Hgb Conc. 33.9 g/dL (33.0-37.0); Mean Corpuscular Hgb 29.1 pg (27.0-31.0); Mean Corpuscular Volume 85.8 fL (81.0-99.0); Mean Platelet Volume 11.7 fL (7.4-10.4); Nucleated Red Blood Cells % 0 %; Platelet Count 142 10^3/uL (130-400); Red Blood Cell Count 3.58 10^6/uL (4.20-5.40); White Blood Cell Count 10.3 10^3/uL (4.8-10.8)
[2025-02-05] MEDS: SOLU-MEDROL PF 60 MG IV (19:02)
[2025-02-05 19:03] LABS: ALT (SGPT) 17 U/L (0-35); AST (SGOT) 20 U/L (14-36); Albumin 3.3 g/dl (3.5-5.0); Alkaline Phosphatase 142 U/L (38-126); Blood Urea Nitrogen 3 mg/dl (7-17); Carbon Dioxide 20 mmol/L (22-30); Chloride 111 mmol/L (98-107); Estimated Creatinine Clearance > 125 ml/min; Glucose 76 mg/dl (70-99); Potassium 3.6 mmol/L (3.5-5.1); Sodium 137 mmol/L (135-145); Total Bilirubin 0.5 mg/dl (0.2-1.3); Total Protein 6.3 g/dl (6.3-8.2); eGFR > 60.00
[2025-02-05] MEDS: ZOVIRAX INJECTION 267.2 MG IV (19:32)
--- NOTE | 2025-02-05 20:02 | HPS.HSE ---
Family Physician
-
Family Physician: Giorgio Castro
Chief Complaint
-
rash
History of Present Illness
34-year-old female G3, P2 status post 2 prior C-sections, Carcamo's palsy, eczema, varicella, presenting with rash that she initially noticed as a scratch that progressively spread. Rash is not vesicular involving the legs, hands and chest and palms.
Rash is itchy associate with burning sensation particularly in the feet.
Rash initially began last month and she was admitted for this and rash was attributed to pruritic urticarial papules and plaques of . She she also had shortness of breath without any prior history of lung disease and was treated with
steroids for presumable asthma.
She states the steroids helped the rash a little bit but is progressed particularly in the feet. The vesicles are very pronounced in the feet with burning and some discharge. She also has involvement of the palms and lip.
She also felt that the left side of her face was a little bit weak today similar to when she had Carcamo's palsy previously.
Medical History
Past Medical History
Past Medical History: Reports Other (G3, P2 status post 2 prior C-sections, Carcamo's palsy, eczema, varicella,)
Past Surgical History: Reports None
Social History
Tobacco: Non-smoker
Alcohol: None
Drug: None
Family History
Family History: Not pertinent
Allergies / Home Medications
Allergies reflects when Allergies were last updated in [employer].
Home Medications with original date entered in [employer]
Allergy/Medication List:
Allergies
Allergy/AdvReac Type Severity Reaction Status Date / Time
No Known Allergies Allergy Verified 01/12/25 06:18
Home Medications
cetirizine 10 mg tablet (Zyrtec) 10 mg PO HS 01/12/25
ferrous sulfate 325 mg (65 mg iron) tablet 325 mg PO DAILY 01/12/25
vit no.95-ferrous fumarate 28 mg-folic acid 800 mcg tablet () 1 tab PO DAILY 01/12/25
albuterol sulfate 2.5 mg/3 mL (0.083 %) solution for nebulization 2.5 mg (3 mL) inhalation R QID 5 days #60 mL 01/13/25
guaifenesin 100 mg/5 mL oral liquid 200 mg (10 mL) PO Q4HPRN PRN cough 5 days #200 mL 01/13/25
prednisone 10 mg tablet See Rx Instructions .Route .COMPLEX #30 tabs 01/13/25
Review of Systems
-
History Source: Patient
A 12 point ROS was completed and negative except as noted: Yes
Constitutional: Reports No Symptoms
EENT: Reports No Symptoms
Respiratory: Reports No Symptoms
Cardiac: Reports No Symptoms
Abdomen/GI: Reports No Symptoms
: Reports No Symptoms
Musculoskeletal: Reports No Symptoms
Skin: Reports No Symptoms
Neurological: Reports No Symptoms
Endocrine: Reports No Symptoms
Hematologic/Lymphatic: Reports No Symptoms
Psych: Reports No Symptoms
Physical Exam
Vital Signs
Vital Signs
Temp Pulse Resp BP Pulse Ox
99.4 F 88 25 119/83 98
02/05/25 16:24 02/05/25 19:45 02/05/25 19:45 02/05/25 18:00 02/05/25 16:24
Physical Exam
General: Well Developed, Well Nourished and No Apparent Distress
HEENT: NormoCephalic, Moist mucous membranes and Atraumatic
Respiratory: Clear
Cardiac: S1/S2 and Regular Rhythm; No Murmur or Rub
GI: Soft, Non Tender, Non Distended and Normal Bowel Sounds; No Organomegaly
Rectal: Deferred by Provider
Musculoskeletal: No Clubbing, No Cyanosis and No Edema
Skin: No Rash
Neuro: Nonfocal/grossly intact
Laboratory Results
-
02/05/25 18:15
02/05/25 18:15
Laboratory Results
Total Bilirubin 0.5 mg/dl (0.2-1.3) 02/05/25 18:15
AST 20 U/L (14-36) 02/05/25 18:15
ALT 17 U/L (0-35) 02/05/25 18:15
Alkaline Phosphatase 142 U/L (38-126) H 02/05/25 18:15
Data Reviewed
-
Lab Data: Labs Reviewed by me
Old Records: Reviewed
Impression/Plan
-
IMPRESSION:
PLAN:
# Vesicular spreading rash concerning for disseminated herpes zoster/HSV versus atypical forms of eczema or psoriasis
- She had chickenpox as a child
-Acyclovir
-Varicella zoster PCR pending, viral culture from vesicle pending
-ID consulted
- Methylprednisolone 40 IV daily, Benadryl as needed
- Patient with some mild Carcamo's palsy symptoms of left face, monitor for disseminated zoster related Carcamo's palsy versus Rosston Molina
# Intrauterine at 33 weeks
- EDITOR MAP consult
Reactive airway disease/asthma
- Recently treated
- Albuterol as needed
- Outpatient follow-up with pulmonary for further inhalers
History of eczema
History of Carcamo's palsy at age 14 years
Full code
DVT prophylaxis�SCDs
Regular diet
[2025-02-06 00:16] VITALS: BP 123/78; BMI 35.0
[2025-02-06] MEDS: ZOVIRAX INJECTION 262.6 MG IV ×3 (00:56→17:37)
[2025-02-06] MEDS: BENADRYL 25 MG IV ×3 (01:43→17:36)
[2025-02-06] MEDS: ProAIR HFA INHALER 2 PUFF INH ×3 (03:00→21:10)
[2025-02-06 07:44] VITALS: BP 112/73
[2025-02-06 08:09] LABS: % Basophils 0.3 % (0-2); % Eosinophils 3.2 % (0-6); % Immature Granulocytes 1.2 % (0-0.5); % Lymphocytes 13.3 % (20.5-51.1); % Monocytes 7.5 % (1.7-9.3); % Neutrophils 74.5 % (42.2-75.2); Absolute Eosinophils 0.3 10^3/uL (0-0.7); Absolute Immature Granulocytes 0.1 10^3/uL (0-0.05); Absolute Lymphocytes 1.3 10^3/uL (1.2-3.4); Absolute Monocytes 0.7 10^3/uL (0.1-0.6); Absolute Neutrophils 7.3 10^3/uL (1.4-6.5); Hematocrit 28.9 % (37.0-47.0); Hemoglobin 9.6 g/dL (12.0-16.0); Mean Corp Hgb Conc. 33.2 g/dL (33.0-37.0); Mean Corpuscular Hgb 28.9 pg (27.0-31.0); Mean Platelet Volume 12.1 fL (7.4-10.4); Nucleated Red Blood Cells % 0 %; Platelet Count 145 10^3/uL (130-400); Red Blood Cell Count 3.32 10^6/uL (4.20-5.40); Red Cell Dist. Width 16.1 % (11.5-14.5); White Blood Cell Count 9.8 10^3/uL (4.8-10.8)
--- NOTE | 2025-02-06 08:11 | W.PN.HOSP.TC ---
Today's Communication/Plan
-
pending ID, OBS consult.
Assessment / Plan
Assessment / Plan
Impression:
34-year-old female G3, P2 status post 2 prior C-sections, Carcamo's palsy, eczema, varicella here for disseminated rash likely herpes zoster versus HSV. �Acyclovir, methylprednisolone, varicella-zoster PCR pending, viral culture from vesicle pending,
ID, FOSTER CARE CASE MANAGER consulted
Assessment/plan:
Vesicular spreading rash concerning for disseminated herpes zoster/HSV versus atypical forms of eczema or psoriasis
- She had chickenpox as a child
-Acyclovir
-Varicella zoster PCR pending, viral culture from vesicle pending
-ID consulted
- Methylprednisolone 40 IV daily, Benadryl as needed
- Patient with some mild Cracamo's palsy symptoms of left face, monitor for disseminated zoster related Carcamo's palsy versus [place] Molina
Intrauterine at 33 weeks
- FOSTER CARE CASE MANAGER consult
Reactive airway disease/asthma
- Recently treated
- Albuterol as needed
- Outpatient follow-up with pulmonary for further inhalers
History of eczema
History of Carcamo's palsy at age 14 years
DVT prophylaxis�SCDs
CODE STATUS: Full code
Diet: Regular diet
Disposition: pending ID, OBS consult.
Total time spent on today's encounter was 65 minutes which included time spent in counseling the patient/family regarding diagnosis and treatment plan as listed above, goals of care, and symptom management. Case was discussed with nursing staff,
specialists, and care coordinators/case management. All labs and imaging personally reviewed by me. Remainder the time spent in detailed review of previous records, lab data, imaging, and other medical provider documentation.
Anticipated Discharge: Within 24 hours
Subjective/Interval History
-
Date of Service: February 06, 2025
Patient seen and examined at bedside, admitted overnight with shortness of breath and rash, denies any chest pain, improved shortness of breath, no abdominal pain, no nausea, no vomiting, no diarrhea or constipation.
Objective Data
-
Labs:
Laboratory Results
02/06/25
06:40
WBC 9.8
Hgb 9.6 L
Hct 28.9 L
Plt Count 145
Sodium Pending
Potassium Pending
Chloride Pending
Carbon Dioxide Pending
BUN Pending
Creatinine Pending
Glucose Pending
Calcium Pending
Total Bilirubin Pending
AST Pending
ALT Pending
Alkaline Phosphatase Pending
Vital Signs:
Vital Signs
Temp Pulse Resp BP Pulse Ox
98.2 F 83 18 112/73 98
02/06/25 07:44 02/06/25 07:44 02/06/25 07:44 02/06/25 07:44 02/06/25 07:44
I&O
02/05/25 02/06/25 02/07/25
06:59 06:59 06:59
Intake Total 480 / 480
Balance 480 / 480
Physical Exam
-
General: Well Developed, Well Nourished, No Apparent Distress and Comfortable
HEENT: Normocephalic, Atraumatic, Moist Mucous Membranes, No Ptosis, PERRLA and Nose Appears Normal
Respiratory: Wheezes, Rales and Non Labored Respirations
Cardiac: Regular Rhythm and S1/S2
Breast: Deferred by me
GI: Soft, Nontender, Nondistended and Normal Bowel Sounds
Genito-urinary: No Costovertebral Tender
Musculoskeletal: No Clubbing, No Cyanosis and No Edema
Skin: Warm and Rash (Diffuse maculopapular rash)
Neuro: Awake, Alert, Oriented, AO x 3 and No Motor Deficits
Psych: Calm
Data Reviewed
-
Diagnostic Radiology: Image personally visualized and interpreted and Report Reviewed by me
CT Scan: Image personally visualized and interpreted and Report Reviewed by me
Ultrasound: Image personally visualized and interpreted and Report Reviewed by me
MRI: Image personally visualized and interpreted and Report Reviewed by me
Medical Tests (Nuc Med, Echo etc): Image personally visualized and interpreted and Report Reviewed by me
Labs: Labs Reviewed by me
Old Records: Reviewed
[2025-02-06] MEDS: SOLU-MEDROL PF 40 MG IV (08:50)
[2025-02-06 09:08] LABS: ALT (SGPT) 17 U/L (0-35); AST (SGOT) 21 U/L (14-36); Alkaline Phosphatase 141 U/L (38-126); Blood Urea Nitrogen 5 mg/dl (7-17); Calcium 8.6 mg/dl (8.4-10.2); Carbon Dioxide 19 mmol/L (22-30); Chloride 112 mmol/L (98-107); Estimated Creatinine Clearance > 125 ml/min; Glucose 87 mg/dl (70-99); Sodium 138 mmol/L (135-145); Total Bilirubin 0.4 mg/dl (0.2-1.3); Total Protein 5.9 g/dl (6.3-8.2); eGFR > 60.00
--- NOTE | 2025-02-06 10:42 | CM ---
Alert awake oriented patient who lives with her Ian and 3yo and 5 yo children in a 2 story home with 0 steps to enter and 12 steps to bed/bathroom. She is independent in activates of daily living.She does drive .No DME . Offered VN she
declined .
No VN in past . No SNF hx
Pharmacy [facility]
PCP Dr Elinor Mckeon
PLAN Home with no needs
[2025-02-06 11:26] LABS: COVID-19 Antigen Negative (Negative)
--- NOTE | 2025-02-06 13:15 | CON.ID ---
Consultation
-
Date/Time Consultation Requested: February 06, 2025 0002
Date/Time Consultation Performed: February 06, 2025 1315
Requesting Provider: Dr. Mee Crouch
Performing Provider: Dr. Shaina Salgado
Reason for Consultation: 33 weeks with vesicular lesions
Chief Complaint / Past History
Chief Complaint
Worsening rash, SOB
History of Present Illness
34-year-old female 34 weeks who presented to the hospital February 05 with recurrence of shortness of breath and worsening skin lesions. She was recently hospitalized from January 12 to January 13 with acute symptoms of cough and shortness of breath
as well as pruritic lesions mostly on her lower extremities and lower abdomen. Chest x-ray negative. She was seen by service desk technician who recommended steroid taper. MASTER SHIP diagnosed her with pruritic urticarial papules and plaques of which
had resolve . Patient's condition improved on tapering course of prednisone however. However when she completed the prednisone she noted worsening lesions now extending up to her chest, palms, on her face. The ankle and foot lesions are
vesicular. She reports in December she did have few vesicles on the bottom of her foot. This time they just got worse. She continues to have significant diffuse itching. She complains of recurrence of the dry cough and shortness of breath. No sputum
production. No fevers or chills. No ill contacts. Her children are fine. No mouth lesions. No history of herpes. She had chickenpox when she was a child. No history of shingles.
Past History
Additional Past Medical History:
Hx Eczema
hx Carcamo's palsy
Childhood varicella disease
x 2
Allergy History:
No Known Allergies Allergy (Verified 01/12/25 06:18)
Medications Reviewed: Yes
Current Antibiotics:
Acyclovir 630mg IV q8H (d2)
Social History
Tobacco: Non-Smoker
Alcohol: None
Drug: None
Personal:
Living: With Family
Review of Systems
Review of Systems
General: Negative Fever, Chills or Change in Appetite
HEENT: Negative Sinus Problems, Headache or Pharyngitis
Cardiovascular: Dyspnea; Negative Chest Pain or Edema
Respiratory: Dyspnea and Cough; Negative Sputum Production
Gasteroenterology: Negative Nausea, Vomiting or Diarrhea
Genital / Urological: Negative Dysuria or Flank Pain
Endocrine: Negative Weakness
Neurological: Negative Dizziness
All systems: All other systems were reviewed and were negative
Vital Signs
Temp Pulse Resp BP Pulse Ox
98.2 F 76 16 112/73 99
02/06/25 07:44 02/06/25 10:27 02/06/25 10:27 02/06/25 07:44 02/06/25 10:27
Physical Exam
Physical Exam
Constitutional: No Acute Distress and Non-toxic
Head: Other (No frontal or max or sinus tenderness)
Eyes: No Conjunctival Hemorrhage and Sclera Anicteric
Pharynx: Benign
Oral: No Ulcers
Cardiovascular: Regular Rate and S1/S2
Pulmonary: Wheezes (mild exp wheeze)
Gastrointestinal: Soft, Non Tender, Distended ( uterus) and Normal Bowel Sounds
Genito-Urinary: Negative CVA Tenderness
Extremities: Negative Edema
Skin: Rash (Diffuse papular lesions on BLE, lower abdomen, chest, flank, lower torso, palm, soles, lip; ankle lesions clusters of vesicles, sole of left foot ruptured blister)
Neurological: AO x 3; Negative Meningeal Signs
Lab / Diagnostic Study Results
02/06/25 06:40
02/06/25 06:40
Abs Immat Gran (auto) 0.1 10^3/uL (0-0.05) H 02/06/25 06:40
Absolute Neuts (auto) 7.3 10^3/uL (1.4-6.5) H 02/06/25 06:40
Absolute Lymphs (auto) 1.3 10^3/uL (1.2-3.4) 02/06/25 06:40
Absolute Monos (auto) 0.7 10^3/uL (0.1-0.6) H 02/06/25 06:40
Absolute Basos (auto) 0.0 10^3/uL (0-0.2) 02/06/25 06:40
Immature Gran % 1.2 % (0-0.5) H 02/06/25 06:40
Neutrophils % 74.5 % (42.2-75.2) 02/06/25 06:40
Lymphocytes % 13.3 % (20.5-51.1) L 02/06/25 06:40
Monocytes % 7.5 % (1.7-9.3) 02/06/25 06:40
Eosinophils % 3.2 % (0-6) 02/06/25 06:40
Basophils % 0.3 % (0-2) 02/06/25 06:40
Microbiology Results
Micro:
02/06/25 10:44 Influenza Types A & B (DULCE) - Final
Nasal Swab Negative for Influenza A & B, NAAT
Negative results must be combined with clinical observations
and patient history.
Nucleic Acid Amplification test (NAAT)performed on the
[employer] platform.
02/05/25 18:15 Viral Culture - Pending
Vesicular Fluid
Assessment / Plan
# Relapse and worsening of PUPP (puritic urticarial papules and plaques of )
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
- After off steroid, relapse and spreading of lesions
- PUPP lesions can progress to vesicles
- Less suspicious for disseminated HSV or Zoster.
Lesions are intensely pruritic, not painful
02/05 ED sent vesicle fluid for VZV PCR and viral culture.
I added HSV PCR to specimen today.
- Continue IV acyclovir while awaiting viral PCR results
- Continue steroid.
# Dyspnea
- ?laryngopathia gravidum; Possible allergic reaction associated with
- Continue steroid
Care Review
Plan reviewed with: Physician (Dr. Dang)
[2025-02-06 15:23] VITALS: BP 110/64
--- NOTE | 2025-02-06 17:49 | PTCARENOTE ---
Performed NST on pt. FHT from 8824-3893 were 125 with accelerations, no contractions. From [id number] FHT were 115 with accelerations, 1 contraction felt by pt. Category 1 NST.
--- NOTE | 2025-02-06 18:14 | CON.MD ---
Consultation - Medical
-
34yo @ 34.0wks EDC 03/20/25 was admitted yesterday due SOB/cough, and disseminated papular rash with burning sensation of her feet Concern for Disseminated Herpes Zoster. She states the rash has been ongoing for a month, very itchy, diagnosed
with PUPPP around the time that she was hospitalized with bronchospasm on 01/12. Sugar Cane Grower put her on prednisone taper and it seemed to improved but she stopped a few days ago and it has gotten progressively worse and started to have burning of
her feet,exacerbated by walking. Finally she also felt very SOB whenever she lay down to the point where was afraid to fall asleep. She was on albuterol for bronchospasm, but ran out of the medication. She denies being on a daily maintenance
medication for asthma.
She reports FM has been less over the last few days but not to the point where she grew concerned.
PMHx: Asthma, Eczema
PSHX : C/S,
POBHx: C/S x2
FHx: Daughter- spina bifida oculta CA- Mom & MGM, Colon CA- PGF
SHx: Neg x3
Meds: Albuterol inh, PNV
All: NKDA
Vitals & Labs: see below
Gen: nad well appearing
Abd: soft, gravid, nt
Papular lesions and vesicles over her abdomen, breasts, arms, legs and feet. Some have erupted
A/P: 34yo @ 34.0wks with asthma exacerbation and concern for disseminated VZV
1. SOB
-continue mgmt per primary team. currently on albuterol
2. Rash
-Viral culture pending on vesicle fluid
-HSV and VZV Ab pending
-She is on acyclovir for suspected disseminated zoster until results return
-If cultures are negative, can consider dermatology referral for biopsy of the lesion. Another diagnostic possibility is Pemphigoid gestationis which is managed conservatively with topical and oral steroids.
- appreciate ID input
3. OB
-NST daily- Reactive today
-No indication for immediate or early delivery at this time
-REviewed plan of care with Dr. Singh Chip. He did recommend that we continue outpatient NSTs once discharged
Vital Signs / Labs
-
Vital Signs and Labs:
Temp Pulse Resp BP Pulse Ox
97.6 F 89 17 110/64 98
02/06/25 15:23 02/06/25 15:23 02/06/25 15:23 02/06/25 15:23 02/06/25 15:23
02/06/25 06:40
02/06/25 06:40
02/05/25 02/06/25
18:15 06:40
RBC 3.58 L 3.32 L
Hgb 10.4 L 9.6 L
Hct 30.7 L 28.9 L
RDW 16.0 H 16.1 H
MPV 11.7 H 12.1 H
Abs Immat Gran (auto) 0.1 H 0.1 H
Absolute Neuts (auto) 7.3 H 7.3 H
Absolute Monos (auto) 0.7 H 0.7 H
Immature Gran % 1.0 H 1.2 H
Lymphocytes % 14.5 L 13.3 L
Eosinophils % 6.1 H
Chloride 111 H 112 H
Carbon Dioxide 20 L 19 L
BUN 3 L 5 L
Creatinine 0.4 L 0.5 L
Alkaline Phosphatase 142 H 141 H
Total Protein 5.9 L
Albumin 3.3 L 3.0 L
VZV & HSV 1/2: Pending
Vesicle Fluid Cx: pending
[2025-02-06] MEDS: BENADRYL 50 MG IV (22:03)
[2025-02-06 23:15] VITALS: BP 102/73
[2025-02-07] MEDS: ProAIR HFA INHALER 2 PUFF INH ×5 (00:22→22:14)
[2025-02-07] MEDS: ZOVIRAX INJECTION 262.6 MG IV ×4 (00:25→23:22)
[2025-02-07 07:00] VITALS: BP 120/71
[2025-02-07] MEDS: SOLU-MEDROL PF 40 MG IV (07:34)
--- NOTE | 2025-02-07 11:33 | W.PN.HOSP.TC ---
Today's Communication/Plan
-
pending herpes simplex, varicella-zoster, varicella-zoster PCR HSV 1 &II PCR
Assessment / Plan
Assessment / Plan
Impression:
34-year-old female G3, P2 status post 2 prior C-sections, Carcamo's palsy, eczema, varicella here for disseminated rash likely herpes zoster versus HSV. �Acyclovir, methylprednisolone, varicella-zoster PCR pending, viral culture from vesicle pending,
ID, CRYSTAL INSPECTOR consulted
Assessment/plan:
Vesicular spreading rash concerning for disseminated herpes zoster/HSV versus atypical forms of eczema or psoriasis
- She had chickenpox as a child
-Acyclovir
-Varicella zoster PCR pending, viral culture from vesicle pending
-ID consulted
- Methylprednisolone 40 IV daily, Benadryl as needed
- Patient with some mild Carcamo's palsy symptoms of left face, monitor for disseminated zoster related Carcamo's palsy versus [place] Molina
02/07
Seen by infectious disease, still pending herpes simplex, varicella-zoster, varicella-zoster PCR HSV 1 &II PCR
Intrauterine at 33 weeks
- CRYSTAL INSPECTOR consult
Reactive airway disease/asthma
- Recently treated
- Albuterol as needed
- Outpatient follow-up with pulmonary for further inhalers
History of eczema
History of Carcamo's palsy at age 14 years
DVT prophylaxis�SCDs
CODE STATUS: Full code
Diet: Regular diet
Disposition: pending herpes simplex, varicella-zoster, varicella-zoster PCR HSV 1 &II PCR
Total time spent on today's encounter was 65 minutes which included time spent in counseling the patient/family regarding diagnosis and treatment plan as listed above, goals of care, and symptom management. Case was discussed with nursing staff,
specialists, and care coordinators/case management. All labs and imaging personally reviewed by me. Remainder the time spent in detailed review of previous records, lab data, imaging, and other medical provider documentation.
Anticipated Discharge: Within 24 hours
Subjective/Interval History
-
Date of Service: February 07, 2025
Patient seen and examined at bedside, denies any chest pain still with shortness of breath, no abdominal pain, no nausea, no vomiting, no diarrhea or constipation.
Itching, added hydrocortisone cream
Objective Data
-
Vital Signs:
Vital Signs
Temp Pulse Resp BP Pulse Ox
98.4 F 90 18 120/71 98
02/07/25 07:00 02/07/25 10:33 02/07/25 10:33 02/07/25 07:00 02/07/25 10:33
I&O
02/06/25 02/07/25 02/08/25
06:59 06:59 06:59
Intake Total 480 / 480 1080 / 1080
Balance 480 / 480 1080 / 1080
Physical Exam
-
General: Well Developed, Well Nourished, No Apparent Distress and Comfortable
HEENT: Normocephalic, Atraumatic, Moist Mucous Membranes, No Ptosis, PERRLA and Nose Appears Normal
Respiratory: Wheezes, Rales and Non Labored Respirations
Cardiac: Regular Rhythm and S1/S2
Breast: Deferred by me
GI: Soft, Nontender, Nondistended and Normal Bowel Sounds
Genito-urinary: No Costovertebral Tender
Musculoskeletal: No Clubbing, No Cyanosis and No Edema
Skin: Warm and Rash (Diffuse maculopapular rash)
Neuro: Awake, Alert, Oriented, AO x 3 and No Motor Deficits
Psych: Calm
Data Reviewed
-
Diagnostic Radiology: Image personally visualized and interpreted and Report Reviewed by me
CT Scan: Image personally visualized and interpreted and Report Reviewed by me
Ultrasound: Image personally visualized and interpreted and Report Reviewed by me
MRI: Image personally visualized and interpreted and Report Reviewed by me
Medical Tests (Nuc Med, Echo etc): Image personally visualized and interpreted and Report Reviewed by me
Labs: Labs Reviewed by me
Old Records: Reviewed
[2025-02-07] MEDS: HYDROCORTISONE 1% CREAM 1 APPLIC TOPICAL (13:13)
[2025-02-07 15:10] VITALS: BP 111/74
[2025-02-07] MEDS: BENADRYL 25 MG IV ×2 (15:39→19:50)
--- NOTE | 2025-02-07 16:03 | W.PN.ID1 ---
Date of Service
Date of Service: February 07, 2025
Today's Communication
Continue acyclovir today. Creatinine stable.
Assessment / Plan
# Relapse and worsening of PUPP (puritic urticarial papules and plaques of )
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
- After off steroid, relapse and spreading of lesions
- PUPP lesions can progress to vesicles
- Less suspicious for disseminated HSV or Zoster.
Lesions are intensely pruritic, not painful
02/05 ED sent vesicle fluid for VZV PCR and viral culture.
HSV PCR testing added.
- Continue IV acyclovir while awaiting viral PCR results
- Continue steroid.
# Dyspnea
- ?laryngopathia gravidum; Possible allergic reaction associated with
- Continue steroid
Chief Complaint
-: Other (Rash)
Subjective / Review of Systems
Patient reports feet have less 'burning' today.
Review of Systems: No Fever and No Chills
Vital Signs / Physical Exam
Vital Signs
Vital Signs
Temp Pulse Resp BP Pulse Ox
98.4 F 87 18 111/74 98
02/07/25 15:10 02/07/25 15:52 02/07/25 15:52 02/07/25 15:10 02/07/25 15:52
Physical Exam
Constitutional: No Acute Distress, Well Developed, Comfortable and Non-toxic
Eyes: Sclera Anicteric
Pulmonary: Non Labored
Gastrointestinal: Other (Gravid)
Skin: Other (Papular lesions noted throughout most of the body. No overt clear vesicles noted. Several on the bottom of the feet with more cloudy appearance and some confluence)
Neurological: Awake and Alert
Psychological: Calm
Objective Data
Lab Data
Lab Results
02/06/25 06:40
02/06/25 06:40
Estimated Creat Clear > 125 ml/min 02/06/25 06:40
Total Bilirubin 0.4 mg/dl (0.2-1.3) 02/06/25 06:40
AST 21 U/L (14-36) 02/06/25 06:40
ALT 17 U/L (0-35) 02/06/25 06:40
Alkaline Phosphatase 141 U/L (38-126) H 02/06/25 06:40
Most recent labs reviewed.
Micro Results:
02/06/25 10:44 Influenza Types A & B (DULCE) - Final
Nasal Swab Negative for Influenza A & B, NAAT
Negative results must be combined with clinical observations
and patient history.
Nucleic Acid Amplification test (NAAT)performed on the
[employer] platform.
02/05/25 18:15 Viral Culture - Pending
Vesicular Fluid
--- NOTE | 2025-02-07 19:05 | W.PN.OBG.DWH ---
Today's Communication / Plan
-
continue with daily NST,
IV steroids
Awaiting culture
Assessment/Plan
-
34 wks IUP
papular-vesicular rash- disseminated PUPPS, VZV in differential.
Continue on steroids.
Awaiting cultures.
NST reactive-reassuring status.
Subjective Data
-
Pt seen approx 18:00. I was managing/delivering so could not come sooner.
Pt reporting continued itching primarily. Not having much pain. No SOB. Baby is active.
No abdominal pain, fevers. Has taken benadryl prn for itching. Not helping much.
Objective Data
-
Laboratory Results
02/06/25 06:40
02/06/25 06:40
Vital Signs
Temp Pulse Resp BP Pulse Ox
98.4 F 87 18 111/74 98
02/07/25 15:10 02/07/25 15:52 02/07/25 15:52 02/07/25 15:10 02/07/25 15:52
VSS afeb
Abd: soft NDNT gravid
skin: diffuse lesions on chest, abdomen, arms, legs-vesicles, papules, nontender to touch.
Reactive NST
[2025-02-07] MEDS: BENADRYL 50 MG IV (21:59)
[2025-02-07] MEDS: ROBITUSSIN DM 5 ML PO (22:28)
[2025-02-07 23:05] VITALS: BP 123/66
[2025-02-08] MEDS: BENADRYL 25 MG IV ×2 (03:17→10:03)
[2025-02-08] MEDS: HYDROCORTISONE 1% CREAM 1 APPLIC TOPICAL ×2 (03:21→16:11)
[2025-02-08 06:09] LABS: Hematocrit 28.2 % (37.0-47.0); Hemoglobin 9.2 g/dL (12.0-16.0); Mean Corp Hgb Conc. 32.6 g/dL (33.0-37.0); Mean Corpuscular Hgb 28.7 pg (27.0-31.0); Mean Corpuscular Volume 87.9 fL (81.0-99.0); Platelet Count 140 10^3/uL (130-400); Red Blood Cell Count 3.21 10^6/uL (4.20-5.40); Red Cell Dist. Width 16.3 % (11.5-14.5); White Blood Cell Count 9.1 10^3/uL (4.8-10.8)
[2025-02-08 06:36] LABS: Blood Urea Nitrogen 6 mg/dl (7-17); Calcium 8.4 mg/dl (8.4-10.2); Carbon Dioxide 20 mmol/L (22-30); Chloride 112 mmol/L (98-107); Estimated Creatinine Clearance > 125 ml/min; Glucose 79 mg/dl (70-99); Potassium 3.5 mmol/L (3.5-5.1); Sodium 138 mmol/L (135-145); eGFR > 60.00
[2025-02-08 07:55] VITALS: BP 114/6
[2025-02-08] MEDS: ZOVIRAX INJECTION 262.6 MG IV ×2 (08:11→16:02)
[2025-02-08] MEDS: SOLU-MEDROL PF 40 MG IV ×2 (08:11→20:13)
[2025-02-08] MEDS: ROBITUSSIN DM 5 ML PO (08:25)
[2025-02-08] MEDS: ProAIR HFA INHALER 2 PUFF INH ×3 (09:14→22:04)
--- NOTE | 2025-02-08 10:13 | W.PN.HOSP.TC ---
Today's Communication/Plan
-
pending herpes simplex, varicella-zoster, varicella-zoster PCR HSV 1 &II PCR
Assessment / Plan
Assessment / Plan
Impression:
34-year-old female G3, P2 status post 2 prior C-sections, Carcamo's palsy, eczema, varicella here for disseminated rash likely herpes zoster versus HSV. �Acyclovir, methylprednisolone, varicella-zoster, ID, DESKTOP ENGINEER consulted , ID think it is PUPP
(puritic urticarial papules and plaques of ) still PCR pending, viral culture from vesicle pending, if negative Dc Acyclovir and dc on steroid.
Assessment/plan:
Vesicular spreading rash concerning for disseminated herpes zoster/HSV versus atypical forms of eczema or psoriasis
- She had chickenpox as a child
-Acyclovir
-Varicella zoster PCR pending, viral culture from vesicle pending
-ID consulted
- Methylprednisolone 40 IV daily, Benadryl as needed
- Patient with some mild Carcamo's palsy symptoms of left face, monitor for disseminated zoster related Carcamo's palsy versus [place] Molina
02/07
Seen by infectious disease, still pending herpes simplex, varicella-zoster, varicella-zoster PCR HSV 1 &II PCR
Intrauterine at 33 weeks
- DESKTOP ENGINEER consult
Reactive airway disease/asthma
- Recently treated
- Albuterol as needed
- Outpatient follow-up with pulmonary for further inhalers
History of eczema
History of Carcamo's palsy at age 14 years
DVT prophylaxis�SCDs
CODE STATUS: Full code
Diet: Regular diet
Disposition: pending herpes simplex, varicella-zoster, varicella-zoster PCR HSV 1 &II PCR
Total time spent on today's encounter was 65 minutes which included time spent in counseling the patient/family regarding diagnosis and treatment plan as listed above, goals of care, and symptom management. Case was discussed with nursing staff,
specialists, and care coordinators/case management. All labs and imaging personally reviewed by me. Remainder the time spent in detailed review of previous records, lab data, imaging, and other medical provider documentation.
Anticipated Discharge: 24 - 48 hours
Subjective/Interval History
-
Date of Service: February 08, 2025
Patient seen and examined at bedside, denies any chest pain, still coughing and has wheezing, but overall shortness of breath improvedm, no abdominal pain, no nausea, no vomiting, no diarrhea or constipation.
Still with itching.
Objective Data
-
Labs:
Laboratory Results
02/08/25
04:57
WBC 9.1
Hgb 9.2 L
Hct 28.2 L
Plt Count 140
Sodium 138
Potassium 3.5
Chloride 112 H
Carbon Dioxide 20 L
BUN 6 L
Creatinine 0.6
Glucose 79
Calcium 8.4
Vital Signs:
Vital Signs
Temp Pulse Resp BP Pulse Ox
98.4 F 80 20 114/6 99
02/08/25 07:55 02/08/25 09:23 02/08/25 09:23 02/08/25 07:55 02/08/25 07:55
I&O
02/07/25 02/08/25 02/09/25
06:59 06:59 06:59
Intake Total 1080 / 1080 3106 / 3106
Balance 1080 / 1080 3106 / 3106
Physical Exam
-
General: Well Developed, Well Nourished, No Apparent Distress and Comfortable
HEENT: Normocephalic, Atraumatic, Moist Mucous Membranes, No Ptosis, PERRLA and Nose Appears Normal
Respiratory: Wheezes, Rales and Non Labored Respirations
Cardiac: Regular Rhythm and S1/S2
Breast: Deferred by me
GI: Soft, Nontender, Nondistended and Normal Bowel Sounds
Genito-urinary: No Costovertebral Tender
Musculoskeletal: No Clubbing, No Cyanosis and No Edema
Skin: Warm and Rash (Diffuse maculopapular rash)
Neuro: Awake, Alert, Oriented, AO x 3 and No Motor Deficits
Psych: Calm
Data Reviewed
-
Diagnostic Radiology: Image personally visualized and interpreted and Report Reviewed by me
CT Scan: Image personally visualized and interpreted and Report Reviewed by me
Ultrasound: Image personally visualized and interpreted and Report Reviewed by me
MRI: Image personally visualized and interpreted and Report Reviewed by me
Medical Tests (Nuc Med, Echo etc): Image personally visualized and interpreted and Report Reviewed by me
Labs: Labs Reviewed by me
Old Records: Reviewed
--- NOTE | 2025-02-08 13:55 | W.PN.OBG.DWH ---
Today's Communication / Plan
-
She should keep appt in office this week as scheduled.
awaiting vesicular fluid culture
Assessment/Plan
-
34w2d with severe diffuse papular, vesicular rash- strong indication for PUPPS rash. Other less likely etiologies VZV, HSV
Awaiting vesicular fluid culture
Continuing on steroids.
Daily NST-pending today.
Subjective Data
-
Feeling slightly better. Itching still keeping her up at night. Benadryl giving some relief.
NO SOB, CP, Abd pain. No bleeding.
Baby actively moving. Having some Layton Maloney.
Right facial Carcamo's palsy sx: droppoing. Had at age 14 which took 4 months to resolve.
Objective Data
-
Laboratory Results
02/08/25 04:57
02/08/25 04:57
Vital Signs
Temp Pulse Resp BP Pulse Ox
98.4 F 80 20 114/6 99
02/08/25 07:55 02/08/25 09:23 02/08/25 09:23 02/08/25 07:55 02/08/25 07:55
VSS afeb
abdL soft NDNT gravid NT fundus
Ext: no calf pain or edema.
Skin: multiple papules, vesicular lesions over body-trunk, extremities
[2025-02-08 15:15] VITALS: BP 118/66
[2025-02-08] MEDS: BENADRYL 25 MG PO (16:02)
--- NOTE | 2025-02-08 16:59 | PTCARENOTE ---
Addendum entered by Jennifer Maynard RN 02/08/25 17:01:
FHR 125 with accelerations, no decels. Cat 1 tracing
Original Note:
Reactive NST completed. Pt reports good movement, denies ctx.
[2025-02-08 23:35] VITALS: BP 109/71
[2025-02-09] MEDS: ZOVIRAX INJECTION 262.6 MG IV ×2 (00:19→09:17)
[2025-02-09] MEDS: BENADRYL 50 MG IV (00:19)
[2025-02-09 07:22] VITALS: BP 117/69
[2025-02-09] MEDS: SOLU-MEDROL PF 40 MG IV (09:16)
[2025-02-09] MEDS: BENADRYL 25 MG PO (09:16)
--- NOTE | 2025-02-09 10:39 | W.PN.ID1 ---
Date of Service
Date of Service: February 09, 2025
Today's Communication
- Discontinue IV empiric acyclovir
- OK to dc home from ID standpoint. No need to wait for HSV/VZV PCR
- Continue steroid.
Assessment / Plan
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
- After off steroid, relapse and spreading of lesions
- Pt currently with significant response to steroids
- Extremely low suspicious for disseminated HSV or Zoster.
PUPP lesions can progress to vesicles
Lesions are intensely pruritic, not painful.
02/05 vesicle fluid for VZV and HSV PCR still pending.
- Discontinue IV empiric acyclovir
- OK to dc home from ID standpoint. No need to wait for HSV/VZV PCR
- Continue steroid.
# Dyspnea
- ?laryngopathia gravidum; Possible allergic reaction associated with
- Continue steroid
Chief Complaint
-: Other (Rash)
Subjective / Review of Systems
Itching and lesions improving. No longer SOB.
Vital Signs / Physical Exam
Vital Signs
Vital Signs
Temp Pulse Resp BP Pulse Ox
98.2 F 89 16 117/69 98
02/09/25 07:22 02/09/25 07:22 02/09/25 07:22 02/09/25 07:22 02/09/25 07:22
Physical Exam
Constitutional: No Acute Distress and Comfortable
Cardiovascular: Regular Rate and S1/S2
Pulmonary: Clear
Gastrointestinal: Soft and Non Tender
Extremities: Negative Edema
Skin: Rash (Diffuse Papular lesions decreased in number and size. Vesicular lesions on bilateral feet resolving. )
Neurological: AO x 3
Objective Data
Lab Data
Lab Results
02/08/25 04:57
02/08/25 04:57
Estimated Creat Clear > 125 ml/min 02/08/25 04:57
Total Bilirubin 0.4 mg/dl (0.2-1.3) 02/06/25 06:40
AST 21 U/L (14-36) 02/06/25 06:40
ALT 17 U/L (0-35) 02/06/25 06:40
Alkaline Phosphatase 141 U/L (38-126) H 02/06/25 06:40
Most recent labs reviewed.
Micro Results:
02/05/25 18:15 Viral Culture - Preliminary
Vesicular Fluid
02/06/25 10:44 Influenza Types A & B (DULCE) - Final
Nasal Swab Negative for Influenza A & B, NAAT
Negative results must be combined with clinical observations
and patient history.
Nucleic Acid Amplification test (NAAT)performed on the
[employer] platform.
Care Review
Plan reviewed with: Physician (Dr. Kennedi Gonzalez)
--- NOTE | 2025-02-09 10:55 | CM ---
Chart reviewed and patient's plan is to return to home with spouse when stable.
Plan; Home with spouse when stable.
--- NOTE | 2025-02-09 12:38 | W.PN.HOSP.TC ---
Today's Communication/Plan
-
dc to home later today
Assessment / Plan
Assessment / Plan
Assessment:
Severe PUPP (puritic urticarial papules and plaques of )
- continue steroids; d/w Dr. Berumen, prednisone 20mg BID x 1 week, then 10mg BID x 4 weeks through time of labor/delivery
- OP Derm f/u
- per ID, can dc acyclovir
RAD/Asthma
- prn neb/inhaler at dc
Intrauterine 34 weeks
- OP OB f/u
History of eczema
History of Carcamo's palsy at age 14 years
DVT ppx: SCDs
Code: Full
More than 30 minutes spent in discharge including
Final examination of the patient
Summarizing hospital stay
Instructions for continuing care to all relevant caregivers
Preparation of discharge records, prescriptions, and referral forms
Total time spent (in minutes): 41
Anticipated Discharge: Today
Subjective/Interval History
-
Date of Service: February 09, 2025
rash improving, less itching
Objective Data
-
Vital Signs:
Vital Signs
Temp Pulse Resp BP Pulse Ox
98.2 F 89 16 117/69 98
02/09/25 07:22 02/09/25 07:22 02/09/25 07:22 02/09/25 07:22 02/09/25 07:22
I&O
02/08/25 02/09/25 02/10/25
06:59 06:59 06:59
Intake Total 3105 / 3105
Balance 3105 / 3105
Physical Exam
-
General: No Apparent Distress
HEENT: Normocephalic and Atraumatic
Respiratory: Negative Wheezes
Cardiac: Regular Rhythm and S1/S2
GI: Soft and Nontender
Musculoskeletal: Other
Skin: Other (Diffuse Papular lesions decreased in number and size. Vesicular lesions on bilateral feet resolving.)
Neuro: AO x 3
Psych: Calm
Data Reviewed
-
Total Time Spent with Patient (in minutes): 41
Labs: Labs Reviewed by me
--- NOTE | 2025-02-09 12:49 | W.DS.TRANS ---
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
-
Discharge Instructions:
Discharge Diagnosis/Procedures Severe PUPP (puritic urticarial papules and
plaques of )
Diet Regular
Activity As tolerated
Bathing Restrictions None
Instructions:
Stand-Alone Forms:
Changes to Home Medications: No
Discharge Medications:
DC Medications w/original date entered in [employer]
cetirizine 10 mg tablet (Zyrtec) 10 mg PO HS Allergies 01/12/25
ferrous sulfate 325 mg (65 mg iron) tablet 325 mg PO DAILY Supplement 01/12/25
vit no.95-ferrous fumarate 28 mg-folic acid 800 mcg tablet () 1 tab PO DAILY Supplement 01/12/25
guaifenesin 100 mg/5 mL oral liquid 200 mg (10 mL) PO Q4HPRN PRN cough 5 days #200 mL 01/13/25
prednisone 10 mg tablet See Rx Instructions .Route .COMPLEX Anti-Inflammatory 02/06/25
albuterol sulfate 2.5 mg/3 mL (0.083 %) solution for nebulization 2.5 mg (3 mL) inhalation R QID PRN Lung/Breathing Issues #75 mL 02/09/25
albuterol sulfate 90 mcg/actuation aerosol inhaler 2 puff inhalation R Q4HPRN PRN shortness of breath #8.5 grams 02/09/25
diphenhydramine HCl 25 mg capsule 25 mg PO Q4HPRN PRN itching #30 caps 02/09/25
hydrocortisone 1 % topical cream 1 applic topical QID PRN rash #28.35 grams 02/09/25
prednisone 10 mg tablet 10 mg PO DIRECTED #100 tabs 02/09/25
Home Medication Changes
Pending Results: No
Total time spent discharging patient (in min): 41
[2025-02-09 13:29] LABS: Varicella-Zoster Source Vesicle; Varicella-Zoster Virus by PCR Not Detected
[2025-02-09 15:38] VITALS: BP 105/81
== END 2025-02-09 16:17 | disposition home or self-care (01) | DRG 833 ==
LOC: 2 NORTH 20:09
PROVIDERS: General Practice; Physician Assistant; ADMITTING PHYSICIAN Hospitalist; ATTENDING PHYSICIAN Internal Medicine; CONSULT PHYSICIAN Internal Medicine Infectious Disease; EMERGENCY PHYSICIAN Student in an Organized Health Care Education/Training Program; FAMILY PHYSICIAN Family Medicine; OTHER PHYSICIAN Obstetrics & Gynecology
DX: O26.86 Pruritic urticarial papules and plaques of pregnancy (PUPPP) (principal); Z3A.34 34 weeks gestation of pregnancy; O09.523 Supervision of elderly multigravida, third trimester; Z11.52 Encounter for screening for COVID-19
CPT/HCPCS: 59025; 80048; 80053; 85025; 85027; 87252; 87502; 87529; 87798; 87811; 93005; 94640; 96361; 96374; 99285

== ENCOUNTER 2025-03-13 05:32 | Inpatient (IN) | payer OTHER, SELFPAY ==
--- NOTE | 2025-03-12 12:41 | HPS.HSE ---
Family Physician
-
Family Physician: NO INTERVIEW UNKNOWN
Chief Complaint
-
repeat
History of Present Illness
Patient is a 34yo with an LISA of 03/20 who presents for scheduled repeat section. She has a history of 2 prior c-sections and is not a candidate for TOALC. She has no complaints.
complications
- severe PUPPS, was hospitalized 02/06-02/09, on prednisone
- BMI 32
- daughter w/ spina bifida occulta
- C/Sx2
- Advanced maternal age
PMHx: obesity
Meds: albuterol prn, PNV, prednisone 10mg BID
Surghx: C/Sx2
NKDA
Socialhx: denies tobacco, etoh or illicit drug use
Famhx: mother and MGM w/ breast cancer, PGM w/ colon cancer
Medical History
Past Medical History
Past Medical History: Reports Other
Past Surgical History: Reports
Social History
Tobacco: Non-smoker
Alcohol: None
Drug: None
Family History
Family History: Cancer
Allergies / Home Medications
Allergies reflects when Allergies were last updated in [employer].
Home Medications with original date entered in [employer]
Allergy/Medication List:
Meds: PNV, albuterol prn, prednisone 10mg BID
NKDA
Review of Systems
-
A 12 point ROS was completed and negative except as noted: Yes
Physical Exam
Physical Exam
General: Well Developed and Well Nourished
HEENT: NormoCephalic
Respiratory: Non Labored Respirations
Cardiac: Regular Rhythm
Skin: Warm and Dry
Neuro: Awake and Alert
Psych: Calm
Impression/Plan
-
IMPRESSION:
Patient is a 34yo with an EDC of 03/20 who presents for scheduled repeat section
PLAN:
- Admission labs
- Patient consented for repeat including bleeding, infection, damage to surrounding structures, and need for future operations. She was consented for a blood transfusion if needed
- Patient has been on prednisone and will need stress dose steroids. Hydrocortisone 100mg IV prior to incision and then will need 50mg q6-8hrs for 24 hours after delivery. After that, she will need to double her dose of steroids for 48hrs and then
can resume the previous dose
- Ancef prior to incision
- Proceed with repeat section
[2025-03-13 05:51] VITALS: BMI 35.9
[2025-03-13 06:14] VITALS: BP 121/70
[2025-03-13] MEDS: LR 1000 IV (06:25)
[2025-03-13 06:46] LABS: Hematocrit 32.7 % (37.0-47.0); Hemoglobin 10.9 g/dL (12.0-16.0); Mean Corp Hgb Conc. 33.3 g/dL (33.0-37.0); Mean Corpuscular Volume 84.1 fL (81.0-99.0); Platelet Count 192 10^3/uL (130-400); Red Cell Dist. Width 16.3 % (11.5-14.5)
[2025-03-13] MEDS: SOLU-CORTEF 100 MG IV (07:47)
[2025-03-13] MEDS: TYLENOL 975 MG PO (07:47)
[2025-03-13] MEDS: BICITRA 30 ML PO (07:48)
[2025-03-13] MEDS: ANCEF 10 IV (10:41)
[2025-03-13] MEDS: PITOCIN 30 UNITS/NSS 500 ML IV (12:36)
[2025-03-13] MEDS: SOLU-CORTEF 50 MG IV ×2 (13:49→19:42)
[2025-03-13] MEDS: TORADOL 15 MG IV ×2 (14:32→20:58)
[2025-03-13] MEDS: COLACE 100 MG PO (19:43)
[2025-03-13] MEDS: TYLENOL 650 MG PO (20:04)
--- NOTE | 2025-03-13 21:55 | OR.RPT ---
Operative Report
Operative Report
Procedure date: 03/13/2025
Preop diagnosis: IUP @39.0, Hx C/Sx2, PUPPS-on prednisone, AMA, Obesity
Postop diagnosis: same
Procedure: Repeat low transverse section
Surgeon: Lashell
Anesthesia: Spinal
QBL: 325mL
Findings: Viable male infant born at 0824, Apgars 8/9, normal appearing uterus, bilateral fallopian tubes and ovaries, dense adhesions between rectus muscles
Complications: none
Indication: Patient is a 34yo @39.0 weeks who presents to Labor and Delivery for scheduled repeat section. She has a history of 2 prior sections and is not a candidate for a trial of labor after section. She has
been on steroids for PUPPS and received 100mg of IV hydrocortisone to incision. Consents were previously signed in the office.
Procedure: Patient was taken to the operating room where spinal anesthesia was administered and found to be adequate. 2g of Ancef was given for antibiotic prophylaxis. The abdomen was prepped with ChloraPrep. The patient was draped in the normal
sterile fashion. She was placed in the dorsal supine position with a left lateral tilt. A Pfannenstiel incision was made with a 10 blade and carried down to the fascia with a scalpel. Hemostasis achieved with Bovie. The fascia was incised and
dissected laterally with Torrez scissors. The superior aspect of the fascia was grasped with Sidney clamps. The underlying rectus fascia was sharply dissected with Torrez scissors. In a similar fashion the inferior aspect of the fascia was elevated with
Sidney clamps and the rectus muscle was dissected off with Torrez scissors. There were dense adhesions between the rectus muscles. The rectus muscles were down the midline to the level of the pubic symphysis with a hemostat and blunt
dissection. The peritoneum was bluntly entered and extended using manual traction.
Leiva retractor and bladder blade were placed revealing good visualization of the bladder. The vesicouterine peritoneum was identified. A thin lower uterine segment was noted. The lower uterine segment was incised with a scalpel. Amniotic sac
was artificially ruptured for clear fluid. The uterine incision was extended bluntly with lateral and upward traction.
The fetus was in cephalic presentation. The head was elevated out of the pelvis with special attention paid to avoid using the uterine incision as a fulcrum. Gentle fundal pressure was applied once the head was brought to the incision. The head
delivered through the hysterotomy. The rest of the delivered without difficulty. Delayed cord clamping was performed. The was handed off to the boat patcher plastic. IV oxytocin was started to facilitate uterine contractions. The placenta was
delivered with fundal massage and gentle downward traction. The uterus was exteriorized. Allis clamps were placed at the apices of the hysterotomy. The inside of the uterus was wiped with a lap sponge to assure complete removal of placental
membranes. Fundal massage was performed and uterus was firm. The uterine incision was closed with 0 Vicryl in a running locked fashion. A horizontal imbricating stitch was done on the hysterotomy with 0 Vicryl. There was oozing from the center of
the hysterotomy and a figure of eight with 0 Vicryl was placed. The hysterotomy was inspected and noted to be hemostatic. The uterus was placed back in the abdomen. Blood clots and fluid were wiped out of the abdomen and pelvis with moist laparotomy
sponges. The hysterotomy was examined and was hemostatic.
The rectus muscles were inspected and were hemostatic. The fascial layer was closed in a running continuous fashion using 0 Vicryl. The subcutaneous tissue was copiously irrigated and any small bleeding vessels were cauterized with Bovie cautery.
The subcutaneous tissue was reapproximated in a running continuous fashion with 2-0 Plain. The skin was closed with 4-0 Vicryl in a subcuticular fashion and covered with skin glue. The patient tolerated the procedure well. All sponge and instrument
counts were correct times two. The patient was taken to the recovery room in stable condition. Barry catheter was draining clear urine at the end of the procedure. Hydrocortisone 50mg q6h was ordered to continue stress dose steroids.
[2025-03-13] MEDS: VENTOLIN NEBULES 2.5 MG INH (22:09)
[2025-03-14] MEDS: SOLU-CORTEF 50 MG IV ×2 (01:58→08:22)
[2025-03-14] MEDS: TORADOL 15 MG IV ×2 (02:50→08:06)
[2025-03-14 04:18] LABS: Hematocrit 29.4 % (37.0-47.0); Hemoglobin 9.6 g/dL (12.0-16.0); Mean Corp Hgb Conc. 32.7 g/dL (33.0-37.0); Mean Corpuscular Volume 85.7 fL (81.0-99.0); Platelet Count 176 10^3/uL (130-400); Red Cell Dist. Width 16.1 % (11.5-14.5)
[2025-03-14] MEDS: TYLENOL 650 MG PO ×3 (04:42→19:48)
[2025-03-14] MEDS: ROXICODONE 5 MG PO (06:32)
[2025-03-14] MEDS: COLACE 100 MG PO ×2 (08:05→19:44)
[2025-03-14] MEDS: PRENATAL PLUS 1 TABLET PO (08:06)
[2025-03-14] MEDS: FEOSOL 325 MG PO (13:15)
[2025-03-14] MEDS: MOTRIN 600 MG PO ×2 (13:16→19:47)
--- NOTE | 2025-03-14 15:15 | W.PN.ANS.POP ---
Anesthesia Post Operative
- Anesthesia Post Op Note
Vital Signs Stable-See Nursing Note: Yes
Airway Patent: Yes
Adequate Pain Control: Yes
Change in Mental Status: No
Current Postoperative Nausea & Vomiting: No
Anesthesia Complications: No
General Anesthetic Recall: No
Unplanned Admission: No
Post Op Hydration Adequate: Yes
[2025-03-15] MEDS: TYLENOL PO (02:10)
[2025-03-15] MEDS: MOTRIN 600 MG PO ×2 (02:10→09:51)
[2025-03-15] MEDS: ROXICODONE 5 MG PO (02:15)
[2025-03-15] MEDS: DELTASONE 40 MG PO (08:21)
[2025-03-15] MEDS: FEOSOL 325 MG PO (08:21)
[2025-03-15] MEDS: COLACE 100 MG PO (08:21)
[2025-03-15] MEDS: PRENATAL PLUS 1 TABLET PO (08:21)
--- NOTE | 2025-03-15 08:21 | W.DS.TRANS ---
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
-
Discharge Instructions:
Discharge Diagnosis/Procedures rcs, pupp
Instructions:
Stand-Alone Forms: LDRP Delivery
Changes to Home Medications: No
Discharge Medications:
DC Medications w/original date entered in [employer]
vit no.95-ferrous fumarate 28 mg-folic acid 800 mcg tablet () 1 tab PO DAILY Supplement 01/12/25
albuterol sulfate 2.5 mg/3 mL (0.083 %) solution for nebulization 2.5 mg (3 mL) inhalation R QID PRN Lung/Breathing Issues #75 mL 02/09/25
prednisone 10 mg tablet 10 mg PO DIRECTED #100 tabs 02/09/25
Benadryl 25 mg PO DAILY 03/13/25
Triamcinolone Acetate 1 squirt subdermal PRN PRN itchy areas 03/13/25
ibuprofen 600 mg tablet 600 mg PO Q6HPRN PRN cramps #90 tabs 03/15/25
oxycodone 5 mg tablet 5 mg PO Q4HPRN PRN moderate pain #6 tabs 03/15/25
prednisone 20 mg tablet 40 mg (2 x 20 mg) PO DAILY #10 tabs 03/15/25
Home Medication Changes
Pending Results: No
Total time spent discharging patient (in min): 15
[2025-03-17 14:19] LABS: Syphilis/T. pallidum Ab Reflex Negative (Negative)
== END 2025-03-15 10:55 | disposition home or self-care (01) | DRG 788 ==
LOC: LDRP 05:32
PROVIDERS: ADMITTING PHYSICIAN Obstetrics & Gynecology; ATTENDING PHYSICIAN Student in an Organized Health Care Education/Training Program
PROC: 10D00Z1 Extraction of Products of Conception, Low, Open Approach (ICD-10-PCS; 2025-03-13)
DX: O34.211 Maternal care for low transverse scar from previous cesarean delivery (principal); Z3A.39 39 weeks gestation of pregnancy; Z37.0 Single live birth; O99.214 Obesity complicating childbirth; O26.86 Pruritic urticarial papules and plaques of pregnancy (PUPPP); K66.0 Peritoneal adhesions (postprocedural) (postinfection); J45.909 Unspecified asthma, uncomplicated; O99.52 Diseases of the respiratory system complicating childbirth; Z79.52 Long term (current) use of systemic steroids; Z28.310 Unvaccinated for COVID-19
CPT/HCPCS: 36415; 85027; 86780; 86850; 86900; 86901; 94640

== ENCOUNTER 2025-07-16 17:42 | Emergency (ER) | payer OTHER, SELFPAY ==
[2025-07-16 17:44] VITALS: BP 123/81
[2025-07-16 18:08] LABS: Hematocrit 35.3 % (37.0-47.0); Hemoglobin 11.7 g/dL (12.0-16.0); Mean Corp Hgb Conc. 33.1 g/dL (33.0-37.0); Mean Corpuscular Volume 87.6 fL (81.0-99.0); Nucleated Red Blood Cells % 0 %; Platelet Count 198 10^3/uL (130-400); Red Cell Dist. Width 13.0 % (11.5-14.5)
[2025-07-16 18:32] LABS: HCG, Serum Qualitative Screen Negative
[2025-07-16 18:36] LABS: ALT (SGPT) 34 U/L (0-35); AST (SGOT) 26 U/L (14-36); Albumin 4.6 g/dl (3.5-5.0); Alkaline Phosphatase 60 U/L (38-126); Blood Urea Nitrogen 20 mg/dl (7-17); Calcium 9.0 mg/dl (8.4-10.2); Chloride 107 mmol/L (98-107); Glucose 95 mg/dl (70-99); Potassium 4.0 mmol/L (3.5-5.1); Sodium 138 mmol/L (135-145); Total Protein 7.6 g/dl (6.3-8.2); eGFR > 60.00
[2025-07-16 18:45] LABS: Carbon Dioxide 24 mmol/L (22-30)
--- NOTE | 2025-07-16 19:10 | ED.GENMED ---
History of Present Illness
General
Chief Complaint: Vaginal Bleeding
Source: patient
Exam Limitations: none
Time Seen by Provider: 07/16/25 18:30
Nursing documentation reviewed up to this point in time: agreed with
History of Present Illness
History of Present Illness:
Patient is a 35-year-old female complains of heavy vaginal bleeding. This is patient's second menses since . She reports she started yesterday however today had increased heavy vaginal bleeding 1-2 pads per hour. Minimal cramping.
Positive clots. She called CARDIAC CARE NURSE and was sent here to the ER. She has no other complaints.
Past History
Past History
ED Past Medical History: None
ED Past Surgical History: None
Social History
Tobacco: Non-smoker
Personal:
Living: with family
Employment: Employed
Phy Exam
General Physical Exam
General Presentation: no apparent distress
General age: appears stated age
General Skin: warm and dry
General Habitus: normal
General Mental: alert
General Hydration: appears well hydrated
Course
Orders/Labs/Results
Orders:
Orders
07/16/25 17:50
Test Result ONCE
07/16/25 17:55
Type+Screen Urgent
CMP [Comprehensive Metabolic Panel] Urgent
Complete Blood Count/With Diff Urgent
HCG, Serum Qualitative Screen Urgent
07/16/25 19:29
0.9% Sodium Chloride 1000 ml [Nss] 1,000 ml IV BOLUS
US Pelvis W Transvag Combined Urgent
Comment: C SEC FEBRUARY
Reason For Exam: heavy vaginal bleeding
Abnormal Lab Results
07/16/25
17:55
RBC 4.03 L 10^6/uL
(4.20-5.40)
Hgb 11.7 L g/dL
(12.0-16.0)
Hct 35.3 L %
(37.0-47.0)
MPV 11.6 H fL
(7.4-10.4)
Eosinophils % 6.4 H %
(0-6)
BUN 20 H mg/dl
(7-17)
07/16/25 17:55
07/16/25 17:55
Vital Signs
Initial and Last Documented VS:
Initial Vital Signs
Temp Pulse Resp BP Pulse Ox
98.1 F 82 16 123/81 98
07/16/25 17:44 07/16/25 17:44 07/16/25 17:44 07/16/25 17:44 07/16/25 17:44
Last Documented Vital Signs
Temp Pulse Resp BP Pulse Ox
98.1 F 82 16 123/81 98
07/16/25 17:44 07/16/25 17:44 07/16/25 17:44 07/16/25 17:44 07/16/25 19:12
Signal Worker Helper consulted with Physician
Signal Worker Helper consulted with physician?: Yes
Name of Physician Consulted: kathya
MDM/Problems Addressed
Differential Diagnosis Includes:
Heavy vaginal bleeding anemianot limited to:
MDM/Problems Addressed:
35-year-old female status post in February presenting for heavy vaginal bleeding. This is the second menses since her . Patient presents to the ER for evaluation. She has stable vital signs she is not tachycardic. She does have
obvious vaginal bleeding on pelvic exam however no clots. Hemoglobin is stable at 11.7 it was 9.6 with her previous delivery in February. Case reviewed with ACCOUNTS RECEIVABLE ASSOCIATE will discharge with TXA. Ultrasound was done recommended by ACCOUNTS RECEIVABLE ASSOCIATE that does show a
thickened endometrial stripe differential diagnoses include endometrial hyperplasia carcinoma and polyp this report was forwarded to CARDIAC CARE NURSE patient will need close outpatient follow-up.
*Radiology
Radiology exam reviewed: radiology read reviewed
*Pulse Oximetry
SaO2: 98
Oxygen Mode of Delivery: Room air
Patient hypoxic: no
*Critical Care Note
Total Time (30-74mins, 75-104mins- exclusive of procedures): Not Applicable
Patient Management
Discussion with other providers: Electronics Lead (DR Tripp )
ED Attending Note
-
Portions of this chart may have been created with voice recognition software.� Occasional wrong word or��sound alike� substitutions may have occurred due to the inherent limitations of voice recognition software.
Discharge Plan
Departure
Patient Disposition: Home (Routine Discharge)
Date of Disposition: 07/16/25
Time of Disposition: 21:59
Patient with high blood pressure during this ER visit?: No
Condition: Fair
Covid-19: Not Applicable
Discharge Problem:
HEAVY VAGINAL BLEEDING
Instructions: Heavy Periods (DC)
Prescriptions:
New
tranexamic acid 650 mg tablet
1,300 mg PO TID 5 Days Qty: 30 0RF
No Action
PNV no.95-ferrous fumarate-FA [] 28 mg iron- 800 mcg Tablet
1 tab PO DAILY
prednisone 10 mg tablet
10 mg PO DIRECTED Qty: 100 0RF
Rx Instructions:
take 20mg BID x 1 week, then 10mg BID x 4 weeks
albuterol sulfate 2.5 mg /3 mL (0.083 %) solution for nebulization
2.5 mg inhalation R QID PRN (Reason: Lung/Breathing Issues) Qty: 75 1RF
Benadryl
25 mg PO DAILY
Triamcinolone Acetate
1 squirt subdermal PRN PRN (Reason: itchy areas)
prednisone 20 mg Tablet
40 mg PO DAILY Qty: 10 0RF
ibuprofen 600 mg Tablet
600 mg PO Q6HPRN PRN (Reason: cramps) Qty: 90 0RF
oxycodone 5 mg Tablet
5 mg PO Q4HPRN PRN (Reason: moderate pain) Qty: 6 0RF
Referrals:
Rosita Ann DO [Family Provider, Family Practice]
Jenny Lobo DO [Active, Gynecology]
Activity Restrictions/Additional Instructions:
As discussed prescription was sent to your pharmacy take as directed starting tomorrow you were given a dose here in the ER. Please call your gynecology office tomorrow for an appointment as soon as possible. You will likely need repeat ultrasound
and reevaluation. Return if any worsening of symptoms
Interventions
Interventions:
*Risk Screen - Suicide Last Done: 07/16/25 17:44
*Neglect/Abuse Screening Last Done: 07/16/25 17:44
*ED- Fall Risk Assessment Last Done: 07/16/25 21:00
ED-Female Genitourinary Assessment Last Done: 07/16/25 20:58
Discharge Date and Time
Print Language: CENTRAL AFR[place]
[2025-07-16] MEDS: NSS 1000 IV (19:50)
[2025-07-16] MEDS: CYKLOKAPRON 1300 MG PO (22:03)
== END 2025-07-16 22:19 | disposition home or self-care (01) ==
LOC: EMR 17:42
PROVIDERS: EMERGENCY PHYSICIAN Emergency Medicine; FAMILY PHYSICIAN Family Medicine; REFERRING PHYSICIAN Obstetrics & Gynecology
DX: N93.9 Abnormal uterine and vaginal bleeding, unspecified (principal); R10.20 Pelvic and perineal pain unspecified side
CPT/HCPCS: 99284; 96360; 96361; 76830; 76856; 80053; 84703; 85025; 86850; 86900; 86901